=== PATIENT | female | born 1980 | race Caucasian/White ===

== ENCOUNTER 2017-02-02 09:15 | Outpatient (CLI) | payer OTHER | END 2017-02-02 09:16 | disposition home or self-care (01) | LOC: LAB.R 09:15 | PROVIDERS: ATTEND Family Medicine | DX: Z11.3 Encounter for screening for infections with a predominantly sexual mode of transmission (principal) | CPT/HCPCS: 87480; 87491; 87510; 87591; 87660 ==

== ENCOUNTER 2018-06-05 11:56 | Outpatient (CLI) | payer OTHER ==
--- NOTE | 2018-06-06 10:51 | Ultrasound Report ---
Reason: MASS IN HEAD/NECK (LEFT SIDE) Procedure Date: 06/05/2018 Accession Number: [id number] / [id number] Procedure: US - Head or Neck Soft Tissue CPT Code: FULL RESULT: EXAM: Neck ULTRASOUND EXAM DATE: 06/05/2018 12:33 PM. CLINICAL HISTORY: MASS IN HEAD/NECK (LEFT SIDE). COMPARISON: None. TECHNIQUE: Real time sonographic imaging of the neck at area of clinical concern was performed by the jack tamp operator. Multiple printing supplies sales representative static images were saved for review. FINDINGS: It is sonographic evaluation of the area of clinical concern along the posterior left neck was performed. Corresponding with that the lump is an oval circumscribed isoechoic 1.0 x 0.4 x 0.7 cm superficial appearing avascular mass. IMPRESSION: Palpable lump corresponds to an approximate 1 cm isoechoic mass. Imaging features suggest this may represent a lipoma. Recommend correlation with physical exam findings and consideration for follow-up if there is any concern for interval growth in size. RADIA
== END 2018-06-05 11:57 | disposition home or self-care (01) ==
LOC: DI 11:56
PROVIDERS: ATTEND Family Medicine
DX: R22.1 Localized swelling, mass and lump, neck (principal)
CPT/HCPCS: 76536

== ENCOUNTER 2019-05-20 08:00 | Outpatient (CLI) | payer OTHER ==
[2019-05-20 18:46] LABS: ABSOLUTE RETICS # AUTO 0.063 10^6/uL (0.020-0.110); BASOPHILS # (AUTO) 0.1 10^3/uL (0.0-0.1); BASOPHILS % (AUTO) 0.8 %; EOSINOPHILS # (AUTO) 0.4 10^3/uL (0.0-0.7); EOSINOPHILS % (AUTO) 5.8 %; HGB - HEMOGLOBIN 12.4 g/dL (12.0-16.0); LYMPHOCYTES # (AUTO) 1.9 10^3/uL (1.5-3.5); LYMPHOCYTES % (AUTO) 29.9 %; MEAN CORPUSCULAR HEMOGLOBIN 30.5 pg (27.0-31.0); MEAN CORPUSCULAR HGB CONC 33.1 g/dL (32.0-36.0); MEAN CORPUSCULAR VOLUME 92.4 fL (81.0-99.0); MEAN PLATELET VOLUME 13.1 fL (7.9-10.8); MONOCYTES # (AUTO) 0.4 10^3/uL (0.0-1.0); MONOCYTES % (AUTO) 6.8 %; NEUTROPHILS # (AUTO) 3.5 10^3/uL (1.5-6.6); NEUTROPHILS % (AUTO) 56.4 %; PLT - PLATELET COUNT 230 10^3/uL (130-450); RED BLOOD COUNT 4.06 10^6/uL (4.20-5.40); RED CELL DISTRIBUTION WIDTH 13.2 % (12.0-15.0); WHITE BLOOD COUNT 6.2 x10^3/uL (4.8-10.8)
[2019-05-20 19:56] LABS: ALBUMIN 3.8 g/dL (3.2-5.5); ALBUMIN/GLOBULIN RATIO 1.1 (1.0-2.2); BILIRUBIN,TOTAL 0.6 mg/dL (0.2-1.0); CALCIUM 9.4 mg/dL (8.5-10.3); CREATININE 0.7 mg/dL (0.4-1.0); TOTAL PROTEIN 7.4 g/dL (6.7-8.2)
[2019-05-20 20:05] LABS: FOLATE 10.41 ng/mL (5.90 - >24.8)
== END 2019-05-30 23:59 | disposition home or self-care (01) ==
LOC: LAB.WCP 08:00
PROVIDERS: ATTEND Family Medicine
DX: R53.83 Other fatigue (principal); E03.9 Hypothyroidism, unspecified; J45.909 Unspecified asthma, uncomplicated
CPT/HCPCS: 36415; 80053; 82607; 82728; 82746; 83540; 84443; 84466; 85025; 85044

== ENCOUNTER 2019-07-26 11:20 | Outpatient (CLI) | payer OTHER ==
[2019-07-26 18:44] LABS: ABSOLUTE RETICS # AUTO 0.053 10^6/uL (0.020-0.110); BASOPHILS # (AUTO) 0.1 10^3/uL (0.0-0.1); BASOPHILS % (AUTO) 1.2 %; EOSINOPHILS % (AUTO) 12.9 %; HGB - HEMOGLOBIN 12.1 g/dL (12.0-16.0); LYMPHOCYTES # (AUTO) 1.9 10^3/uL (1.5-3.5); LYMPHOCYTES % (AUTO) 25.4 %; MEAN CORPUSCULAR HEMOGLOBIN 30.6 pg (27.0-31.0); MEAN CORPUSCULAR HGB CONC 32.4 g/dL (32.0-36.0); MEAN CORPUSCULAR VOLUME 94.4 fL (81.0-99.0); MEAN PLATELET VOLUME 12.8 fL (7.9-10.8); MONOCYTES # (AUTO) 0.4 10^3/uL (0.0-1.0); MONOCYTES % (AUTO) 5.6 %; NEUTROPHILS % (AUTO) 54.6 %; PLT - PLATELET COUNT 185 10^3/uL (130-450); RED BLOOD COUNT 3.96 10^6/uL (4.20-5.40); RED CELL DISTRIBUTION WIDTH 13.8 % (12.0-15.0); WHITE BLOOD COUNT 7.4 x10^3/uL (4.8-10.8)
[2019-07-26 19:11] LABS: % IRON SATURATION 41 % (20-50); IRON 104 ug/dL (28-170); TOTAL IRON BINDING CAPACITY 253 ug/dL (250-450); TRANSFERRIN 181 mg/dL (192-382)
== END 2019-07-26 23:59 | disposition home or self-care (01) ==
LOC: LAB.WCP 11:20
PROVIDERS: ATTEND Family Medicine
DX: Z00.00 Encounter for general adult medical examination without abnormal findings (principal); R53.83 Other fatigue
CPT/HCPCS: 36415; 82728; 83540; 84466; 85025; 85045

== ENCOUNTER 2019-07-27 18:19 | Emergency (ER) | payer OTHER ==
[2019-07-27 18:52] LABS: BILIRUBIN,URINE NEGATIVE (NEGATIVE); GLUCOSE, URINE (UA) NEGATIVE (NEGATIVE); KETONES,URINE (UA) >=80 mg/dL (NEGATIVE); LEUKOCYTE ESTERASE, URINE NEGATIVE (NEGATIVE); NITRITE,URINE NEGATIVE (NEGATIVE); OCCULT BLOOD,URINE NEGATIVE (NEGATIVE); PH,URINE 6.5 PH (5.0-7.5); PROTEIN,URINE NEGATIVE (NEGATIVE); UROBILINOGEN,URINE 0.2 (NORMAL) E.U./dL (NORMAL)
[2019-07-27 18:53] LABS: CLARITY,URINE CLEAR (CLEAR)
[2019-07-27 18:54] LABS: HCG UR QUAL NEGATIVE
[2019-07-27 18:56] LABS: BASOPHILS % (AUTO) 0.7 %; EOSINOPHILS % (AUTO) 11.3 %; HGB - HEMOGLOBIN 12.5 g/dL (12.0-16.0); LYMPHOCYTES % (AUTO) 20.2 %; MEAN CORPUSCULAR HEMOGLOBIN 29.8 pg (27.0-31.0); MEAN CORPUSCULAR HGB CONC 32.7 g/dL (32.0-36.0); MEAN PLATELET VOLUME 12.1 fL (7.9-10.8); MONOCYTES % (AUTO) 5.4 %; PLT - PLATELET COUNT 198 10^3/uL (130-450); RED CELL DISTRIBUTION WIDTH 13.6 % (12.0-15.0); WHITE BLOOD COUNT 10.2 x10^3/uL (4.8-10.8)
[2019-07-27 19:00] LABS: ABNORMAL LYMPHS % (MANUAL) 0 %; BAND NEUTROPHILS % (MANUAL) 0 %
[2019-07-27 19:05] LABS: ALBUMIN 3.9 g/dL (3.2-5.5); ALBUMIN/GLOBULIN RATIO 1.1 (1.0-2.2); BILIRUBIN,TOTAL 0.4 mg/dL (0.2-1.0); CALCIUM 9.4 mg/dL (8.5-10.3); CREATININE 0.8 mg/dL (0.4-1.0); TOTAL PROTEIN 7.5 g/dL (6.7-8.2)
[2019-07-27 19:22] LABS: EOSINOPHILS # (MANUAL) 0.6 10^3/uL (0-0.7); LYMPHOCYTES # (MANUAL) 1.9 10^3/uL (1.5-3.5); LYMPHOCYTES % (MANUAL) 18 %; MONOCYTES # (MANUAL) 0.4 10^3/uL (0.0-1.0)
[2019-07-27 19:23] LABS: DIFFERENTIAL COMMENT MANUAL DIFFERENTIAL; PLATELET ESTIMATE, MANUAL NORMAL (130-450,000) (NORMAL); PLATELET MORPHOLOGY NORMAL APPEARANCE (NORMAL); RBC MORPHOLOGY (MULTIPLE) NORMAL APPEARANCE (NORMAL)
--- NOTE | 2019-07-27 20:40 | Ultrasound Report ---
Reason: RUQ abd pain Procedure Date: 07/27/2019 Accession Number: [id number] / [id number] Procedure: US - Abdomen Limited CPT Code: Final Report FULL RESULT: EXAM: ABDOMEN ULTRASOUND LIMITED, RUQ EXAM DATE: 07/27/2019 08:15 PM. CLINICAL HISTORY: RUQ abd pain. COMPARISON: None. TECHNIQUE: Real-time scanning was performed with static images obtained. FINDINGS: Liver: Normal in size and echotexture. 16.5 cm. There is an echogenic lesion in left lobe of liver, measuring 1.4 x 0.9 x 0.7 cm likely a benign hemangioma. Main portal vein flow: Hepatopetal. Gallbladder: Status post cholecystectomy. Biliary System: CBD measures 4 mm. No intrahepatic or extrahepatic ductal dilatation. Other: Right kidney measures 9.7 cm. No hydronephrosis. Pancreas not well seen. IMPRESSION: Status post cholecystectomy. A benign cavernous hemangioma in left lobe of liver measuring 1.4 x 0.9 x 0.7 cm. No other significant abnormality. RADIA
--- NOTE | 2019-07-27 20:46 | ED Physician Documentation ---
PD HPI ABD PAIN - Stated complaint Stated Complaint: AB PX - Chief complaint Chief Complaint: Abd Pain - History obtained from History obtained from: Patient - History of Present Illness Timing - onset: How many years ago (2) Timing - duration: Years (2) Timing - details: Gradual onset, Now resolved, Waxing and waning Quality: Aching, Sharp, Pain Location: LUQ Improved by: Other (somethimes antacid) Worsened by: Eating Associated symptoms: Nausea, Vomiting. No: Diarrhea, Constipation Similar symptoms before: No diagnosis Recently seen: Not recently seen - Additional information Additional information: 39-year-old female who complains of 2-year history of left upper quadrant abdominal pain she has had her gallbladder taken out and she has persistence of the symptoms where she will have some pain sometimes after eating and sometimes this lasts for a day or 2 and then eventually resolves. She feels that she has to make herself vomit sometimes to get rid of the pain. She states that every once while she will take some antacid and it seems to help a little bit. Review of Systems Constitutional: denies: Fever Eyes: denies: Decreased vision Ears: denies: Ear pain Nose: denies: Congestion Throat: denies: Sore throat Cardiac: denies: Chest pain / pressure, Palpitations Respiratory: denies: Dyspnea, Cough GI: reports: Abdominal Pain, Nausea, Vomiting. denies: Constipation, Diarrhea, Bloody / black stool : denies: Dysuria, Frequency PD PAST MEDICAL HISTORY - Past Medical History Cardiovascular: None Respiratory: Asthma Endocrine/Autoimmune: None Psych: None Musculoskeletal: Chronic back pain - Past Surgical History Past Surgical History: Yes General: Cholecystectomy HEENT: Rhinoplasty Derm: Other - Present Medications Home Medications: Ambulatory Orders Medication Instructions Recorded Confirmed Albuterol Sulfate [Proair Hfa] 1 puffs INH DAILY PRN 01/23/15 01/23/15 Desogestrel-Ethinyl Estradiol 1 tab PO DAILY 01/23/15 01/23/15 [Apri 28 Day Tablet] Omeprazole 20 mg PO DAILY PM #20 capsule. 07/27/19 Sucralfate [Carafate] 1 gm PO ACHS #60 tablet 07/27/19 - Allergies Allergies/Adverse Reactions: Allergies Allergy/AdvReac Type Severity Reaction Status Date / Time Sulfa (Sulfonamide Allergy Edema Verified 07/27/19 18:31 Antibiotics) - Social History Does the pt smoke?: No Smoking Status: Never smoker Does the pt drink ETOH?: Yes Does the pt have substance abuse?: No - Immunizations Immunizations are current?: Yes - POLST Patient has POLST: No PD ED PE NORMAL - Vitals Vital signs reviewed: Yes (hypertensive ) - General General: Alert and oriented X 3, No acute distress, Well developed/nourished - HEENT HEENT: Atraumatic, PERRL, EOMI - Neck Neck: Supple, no meningeal sign, No bony TTP - Cardiac Cardiac: RRR, No murmur - Respiratory Respiratory: No respiratory distress, Clear bilaterally - Abdomen Abdomen: Normal bowel sounds, Soft, Non tender, Non distended, No organomegaly - Back Back: No CVA TTP, No spinal TTP - Derm Derm: Normal color, Warm and dry, No rash - Extremities Extremities: No deformity, No edema, No calf tenderness / cord - Neuro Neuro: Alert and oriented X 3, freelance translator 2-12 intact, No motor deficit, No sensory deficit, Normal speech Eye Opening: Spontaneous Motor: Obeys Commands Verbal: Oriented GCS Score: 15 - Psych Psych: Normal mood, Normal affect Results - Vitals Vitals: Vital Signs - 24 hr 07/27/19 07/27/19 18:30 20:52 Temperature 36.6 C 36.6 C Heart Rate 79 67 Respiratory 18 16 Rate Blood Pressure 146/75 H 146/68 H O2 Saturation 99 100 Oxygen O2 Source Room air - Labs Labs: Laboratory Tests 07/27/19 07/27/19 07/27/19 18:37 18:47 18:47 WBC 10.2 RBC 4.20 Hgb 12.5 Hct 38.2 MCV 91.0 MCH 29.8 MCHC 32.7 RDW 13.6 Plt Count 198 MPV 12.1 H Neut # (Auto) Not Reportable Lymph # (Auto) Not Reportable Mcdowell # (Auto) Not Reportable Eos # (Auto) Not Reportable Baso # (Auto) Not Reportable Absolute Nucleated RBC Not Reportable Total Counted 100 Band Neuts % (Manual) 0 Reactive Lymphs % (Man) 1 Abnorm Lymph % (Manual) 0 Nucleated RBC % Not Reportable Neutrophils # (Manual) 7.2 H Lymphocytes # (Manual) 1.9 Monocytes # (Manual) 0.4 Eosinophils # (Manual) 0.6 Basophils # (Manual) 0.0 Differential Comment MANUAL DIFFERENTIAL Platelet Estimate NORMAL (130-450,000) Platelet Morphology NORMAL APPEARANCE RBC Morph Micro Appear NORMAL APPEARANCE Sodium 137 Potassium 3.4 L Chloride 102 Carbon Dioxide 25 Anion Gap 10.0 BUN 11 Creatinine 0.8 Estimated GFR (MDRD) 81 L Glucose 87 Calcium 9.4 Total Bilirubin 0.4 AST 37 ALT 44 Alkaline Phosphatase 84 Total Protein 7.5 Albumin 3.9 Globulin 3.6 Albumin/Globulin Ratio 1.1 Lipase 38 Urine Color YELLOW Urine Clarity CLEAR Urine pH 6.5 Ur Specific Esmond 1.020 Urine Protein NEGATIVE Urine Glucose (UA) NEGATIVE Urine Ketones >=80 H Urine Occult Blood NEGATIVE Urine Nitrite NEGATIVE Urine Bilirubin NEGATIVE Urine Urobilinogen 0.2 (NORMAL) Ur Leukocyte Esterase NEGATIVE Ur Microscopic Review NOT INDICATED Urine Culture Comments NOT INDICATED Urine HCG, Qual NEGATIVE - Rads (name of study) RUQ u/s Radiology: Prelim report reviewed, EMP read indepedently, See rad report (Impression: Status post cholecystectomy. A benign cavernous hemangioma in the left lobe of liver measuring 1.4 x 0.9 x 0.7 cm. No other significant abnormality.) PD MEDICAL DECISION MAKING - ED course Complexity details: considered differential, d/w patient ED course: 39-year-old female with a history of left upper quadrant abdominal pain periodically does not have pain currently and we are unable to interrogate the pain with the GI cocktail. Her symptoms are most consistent with acute gastritis/duodenitis The patient is administered Protonix 40 mg orally and Carafate [address] her on a course of Nexium and Carafate. Departure - Departure Disposition: 01 Home, Self Care Clinical Impression: Gastritis Qualifiers: Gastritis type: unspecified gastritis Chronicity: acute Gastritis bleeding: without bleeding Qualified Code(s): K29.00 - Acute gastritis without bleeding Condition: Stable Instructions: ED PUD Vs Gastritis Follow-Up: Katherine Ruff PA-C [Primary Care Provider] - Prescriptions: Omeprazole 20 mg PO DAILY PM #20 capsule. Sucralfate [Carafate] 1 gm PO ACHS #60 tablet Discharge Date/Time: 07/27/19 21:00
[2019-07-27] MEDS ORDERED: SUCRALFATE 1 GM/10 ML UDC PO STA (20:47)
[2019-07-27] MEDS ORDERED: PANTOPRAZOLE 40 MG TABLET PO STA (20:47)
[2019-07-27 20:53] VITALS: BP 146/68
== END 2019-07-27 21:00 | disposition home or self-care (01) ==
LOC: ED 18:19
DX: K29.00 Acute gastritis without bleeding (principal)
CPT/HCPCS: 36415; 76705; 80053; 81003; 81025; 83690; 85025; 99284; A9270; 81001; 87086

== ENCOUNTER 2019-08-02 01:32 | Emergency (ER) | payer OTHER ==
--- NOTE | 2019-08-02 02:07 | ED Physician Documentation ---
PD HPI URI - Stated complaint Stated Complaint: SOA/COUGH - Chief complaint Chief Complaint: Resp - History obtained from History obtained from: Patient - History of Present Illness Timing - onset: How many weeks ago (1) Timing duration: Weeks (1) Timing details: Gradual onset, Still present Associated symptoms: Fever, Nasal congestion, Dry cough, Dyspnea Contributing factors: COPD / asthma. No: Travel, Immunocompromised Improves by: MDI/nebulizer (using inhaler at times) Worsened by: Activity Similar symptoms before: Diagnosis (gets ashtma exac with URIs.) Recently seen: Not recently seen Review of Systems Constitutional: reports: Chills, Myalgias Nose: reports: Rhinorrhea / runny nose, Congestion Throat: denies: Oral lesions / sores, Sore throat Respiratory: reports: Dyspnea, Cough, Wheezing GI: denies: Nausea, Vomiting, Diarrhea Skin: denies: Rash, Lesions PD PAST MEDICAL HISTORY - Past Medical History Past Medical History: Yes Cardiovascular: None Respiratory: Asthma Endocrine/Autoimmune: None Psych: None Musculoskeletal: Chronic back pain - Past Surgical History Past Surgical History: Yes 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 07/27/19 Sucralfate [Carafate] 1 gm PO ACHS #60 tablet 07/27/19 Albuterol Sulf [Ventolin Hfa 1 - 2 puffs INH Q4HR PRN #1 inhaler 08/02/19 Inhaler] Benzonatate [Tessalon Perle] 100 - 200 mg PO TID PRN #30 capsule 08/02/19 dexAMETHasone [Decadron] 4 mg PO DAILY #5 tablet 08/02/19 guaiFENesin/CODEINE [Robitussin AC] 10 ml PO Q6H PRN #240 ml 08/02/19 - Allergies Allergies/Adverse Reactions: Allergies Allergy/AdvReac Type Severity Reaction Status Date / Time Sulfa (Sulfonamide Allergy Edema Verified 08/02/19 01:40 Antibiotics) - Social History Does the pt smoke?: No Smoking Status: Never smoker Does the pt drink ETOH?: No Does the pt have substance abuse?: No - Immunizations Immunizations are current?: Yes - POLST Patient has POLST: No PD ED PE NORMAL - Vitals Vital signs reviewed: Yes - General General: Alert and oriented X 3, No acute distress, Well developed/nourished - HEENT HEENT: Moist mucous membranes, Pharynx benign - Neck Neck: Supple, no meningeal sign, No adenopathy - Cardiac Cardiac: RRR, No murmur - Respiratory Respiratory: Clear bilaterally (some wheeze noted but no coarse sounds) - Abdomen Abdomen: Soft, Non tender - Derm Derm: Normal color, Warm and dry - Neuro Neuro: Alert and oriented X 3, No motor deficit, Normal speech Results - Vitals Vitals: Oxygen O2 Source Room air PD MEDICAL DECISION MAKING - ED course Complexity details: re-evaluated patient (does not sound like pneumonia.), considered differential, d/w patient Departure - Departure Disposition: 01 Home, Self Care Clinical Impression: Upper respiratory infection Qualifiers: URI type: unspecified URI Qualified Code(s): J06.9 - Acute upper respiratory infection, unspecified Dyspnea Qualifiers: Dyspnea type: shortness of breath Qualified Code(s): R06.02 - Shortness of breath Condition: Stable Record reviewed to determine appropriate education?: Yes Instructions: ED URI Viral W Wheezing Follow-Up: Katherine Ruff PA-C [Primary Care Provider] - Prescriptions: Albuterol Sulf [Ventolin Hfa Inhaler] 1 - 2 puffs INH Q4HR PRN #1 inhaler PRN Reason: Shortness Of Air/Wheezing Benzonatate [Tessalon Perle] 100 - 200 mg PO TID PRN #30 capsule PRN Reason: Cough dexAMETHasone [Decadron] 4 mg PO DAILY #5 tablet guaiFENesin/CODEINE [Robitussin AC] 10 ml PO Q6H PRN #240 ml PRN Reason: Cough Comments: Stay well-hydrated. Tylenol or ibuprofen if needed for fevers and pains. Use the benzonatate (Tessalon) every 6 hours if needed for cough suppression. Use your albuterol inhaler 2 puffs 4 times a day for the next 7 to 10 days. Extra times if needed for wheezing and persistent cough. Decadron steroid daily for 5 more days to decrease inflammation through the airway and improve breathing with less coughing. Add cough medicine as needed. Recheck if not improving well over the next several days and resolved over a few days to week. Discharge Date/Time: 08/02/19 03:24
[2019-08-02] MEDS ORDERED: ALBUTEROL NEB 2.5 MG/3 ML INH STA (02:21)
[2019-08-02] MEDS ORDERED: BENZONATATE 100 MG CAPSULE PO STA (02:21)
[2019-08-02] MEDS ORDERED: CHERRY SYRUP 10 ML UDC PO ONE (02:21)
[2019-08-02] MEDS ORDERED: DEXAMETHASONE 10 MG/ML VIAL PO STA (02:21)
[2019-08-02 03:22] VITALS: BP 144/73
== END 2019-08-02 03:24 | disposition home or self-care (01) ==
LOC: ED 01:32
DX: J06.9 Acute upper respiratory infection, unspecified (principal); J45.909 Unspecified asthma, uncomplicated
CPT/HCPCS: 94640; 94664; 99284; A9270

== ENCOUNTER 2020-06-20 20:50 | Outpatient (CLI) | payer BC | END 2020-06-20 20:51 | disposition home or self-care (01) | LOC: COV 20:50 | PROVIDERS: ATTEND Family Medicine | DX: R05 Cough (principal); R06.02 Shortness of breath; R53.83 Other fatigue; R09.81 Nasal congestion; Z20.828 Contact with and (suspected) exposure to other viral communicable diseases ==

== ENCOUNTER 2020-11-22 01:32 | Emergency (ER) | payer BC ==
--- NOTE | 2020-11-22 02:17 | ED Physician Documentation ---
PD HPI URI - Stated complaint Stated Complaint: CONGESTION/COUGH - Chief complaint Chief Complaint: Resp - History obtained from History obtained from: Patient - History of Present Illness Timing - onset: How many days ago (4) Timing duration: Days (4) Timing details: Gradual onset, Still present Associated symptoms: Chills, Nasal congestion, Dry cough, Dyspnea. No: Fever, Hemoptysis, NVD Contributing factors: COPD / asthma. No: Sick contact, Travel, Immunocompromised Similar symptoms before: Diagnosis (gets asthma exac when has URI type symptoms.) Recently seen: Not recently seen Review of Systems Constitutional: reports: Chills, Myalgias. denies: Fever Nose: reports: Rhinorrhea / runny nose, Congestion. denies: Sinus pressure / pain Cardiac: denies: Chest pain / pressure, Pedal edema, Calf pain Respiratory: reports: Dyspnea, Cough, Wheezing. 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 HEENT: Rhinoplasty Derm: Other - Present Medications Home Medications: Ambulatory Orders Medication Instructions Recorded Confirmed Albuterol Sulfate [Proair Hfa] 1 puffs INH DAILY PRN 01/23/15 01/23/15 Benzonatate [Tessalon Perle] 100 - 200 mg PO TID PRN #30 capsule 08/02/19 Beclomethasone 80 Mcg [Qvar 80] 1 puffs INH BID #1 inhaler 11/22/20 Benzonatate [Tessalon] 100 mg PO TID PRN #20 cap 11/22/20 Ferrous Sulfate 325 mg ORAL DAILY 11/22/20 11/22/20 Olopatadine HCl [Pataday] 2.5 ml OP DAILY 11/22/20 11/22/20 Sumatriptan Inj [Imitrex Inj] 6 mg SUBQ ONCE PRN 11/22/20 11/22/20 cefUROXime axetiL [Ceftin] 500 mg PO BID #20 tablet 11/22/20 desogestreL-ethinyl estradioL 1 each PO DAILY 11/22/20 11/22/20 [Enskyce 28 Tablet] dexAMETHasone [Decadron] 4 mg PO DAILY #5 tablet 11/22/20 - Allergies Allergies/Adverse Reactions: Allergies Allergy/AdvReac Type Severity Reaction Status Date / Time Sulfa (Sulfonamide Allergy Edema Verified 11/22/20 01:41 Antibiotics) - Social History Does the pt smoke?: No Smoking Status: Never smoker Does the pt drink ETOH?: No Does the pt have substance abuse?: No - Immunizations Immunizations are current?: Yes - POLST Patient has POLST: No PD ED PE NORMAL - Vitals Vital signs reviewed: Yes - General General: Alert and oriented X 3, No acute distress, Well developed/nourished - HEENT HEENT: Moist mucous membranes, Pharynx benign - Neck Neck: Supple, no meningeal sign, No adenopathy - Cardiac Cardiac: RRR (minimal tachycardia), No murmur - Respiratory Respiratory: No: Clear bilaterally (some exp wheezing noted diffusely. No coarse sounds. ) - Abdomen Abdomen: Soft, Non tender - Extremities Extremities: No edema, No calf tenderness / cord - Neuro Neuro: Alert and oriented X 3, No motor deficit, Normal speech Results - Vitals Vitals: Vital Signs - 24 hr 11/22/20 11/22/20 11/22/20 01:39 02:50 03:11 Temperature 37.3 C 37.0 C Heart Rate 104 H 77 76 Respiratory 18 18 16 Rate Blood Pressure 111/94 H 112/90 H O2 Saturation 99 100 Oxygen O2 Source Room air PD MEDICAL DECISION MAKING - ED course Complexity details: considered differential (DoUpper respiratory and cough type symptoms with exacerbation of asthma. Await test to ensure. No pneumonia sounds per se. Given her asthma, will treat with steroids and inhaler but also consider oral antibiotics in light of the underlying lung disease), d/w patient Departure - Departure Disposition: 01 Home, Self Care Clinical Impression: Bronchitis Exacerbation of asthma Qualifiers: Asthma severity: mild Asthma persistence: intermittent Qualified Code(s): J45.21 - Mild intermittent asthma with (acute) exacerbation Upper respiratory infection Qualifiers: URI type: unspecified URI Qualified Code(s): J06.9 - Acute upper respiratory infection, unspecified Condition: Stable Record reviewed to determine appropriate education?: Yes Instructions: ED Upper Resp Infec Abx Tx Follow-Up: Katherine Ruff PA-C [Primary Care Provider] - Prescriptions: cefUROXime axetiL [Ceftin] 500 mg PO BID #20 tablet dexAMETHasone [Decadron] 4 mg PO DAILY #5 tablet Beclomethasone 80 Mcg [Qvar 80] 1 puffs INH BID #1 inhaler Benzonatate [Tessalon] 100 mg PO TID PRN #20 cap PRN Reason: Cough Comments: Stay well-hydrated. Use your albuterol inhaler 2 to 3 puffs 4 times a day for the next several days to week. Decadron steroid daily for the next 5 days. Cefuroxime antibiotic twice daily for 5 days as well. Add benzonatate every 4-6 hours if needed for cough. Tylenol or ibuprofen if needed for fever or chills. Recheck if not improving well over the next several days and resolved by 5 days. You may still have a bit of a cough left at that time but should be well improved. Once done with the oral steroids, you can transition to the Qvar inhaler over the next month or so. Discharge Date/Time: 11/22/20 03:10
[2020-11-22] MEDS ORDERED: ALBUTEROL NEB 2.5 MG/3 ML INH STA (02:32)
[2020-11-22] MEDS ORDERED: CHERRY SYRUP 10 ML UDC PO ONE (02:32)
[2020-11-22] MEDS ORDERED: DEXAMETHASONE 10 MG/ML VIAL PO STA (02:32)
[2020-11-22] MEDS ORDERED: BENZONATATE 100 MG CAPSULE PO STA (02:32)
[2020-11-22 03:12] VITALS: BP 112/90
== END 2020-11-22 03:10 | disposition home or self-care (01) ==
LOC: ED 01:32
DX: J40 Bronchitis, not specified as acute or chronic (principal); J45.21 Mild intermittent asthma with (acute) exacerbation; J06.9 Acute upper respiratory infection, unspecified; Z20.822 Contact with and (suspected) exposure to COVID-19
CPT/HCPCS: 87635; 94640; 99284; A9270

== ENCOUNTER 2020-11-23 09:54 | Outpatient (CLI) | payer BC ==
--- NOTE | 2020-11-23 10:16 | XRAY Report ---
PROCEDURE: Chest 2 View X-Ray INDICATIONS: ASTHMA EXACERBATION TECHNIQUE: 2 view(s) of the chest. COMPARISON: 01/23/2015 FINDINGS: Surgical changes and devices: None. Lungs and pleura: No pleural effusions or pneumothorax. Lungs are clear. Mediastinum: Mediastinal contours are normal. Heart size is normal. Bones and chest wall: No suspicious bony abnormalities. Soft tissues appear unremarkable. IMPRESSION: No acute cardiopulmonary process demonstrated radiographically. Reviewed by: Matt Ko MD on 11/23/2020 10:14 AM PDT Approved by: Matt Ko MD on 11/23/2020 10:14 AM PDT Station ID: [id number]
== END 2020-11-23 09:55 | disposition home or self-care (01) ==
LOC: DI.N 09:54
PROVIDERS: ATTEND Family Medicine
DX: J45.901 Unspecified asthma with (acute) exacerbation (principal)

== ENCOUNTER 2021-01-24 08:00 | Outpatient (CLI) | payer BC | END 2021-01-24 23:59 | disposition home or self-care (01) | LOC: LAB.N 08:00 | PROVIDERS: ATTEND Family Medicine | DX: R05 Cough (principal); Z20.822 Contact with and (suspected) exposure to COVID-19 ==

== ENCOUNTER 2021-01-24 18:13 | Outpatient (CLI) | payer BC ==
--- NOTE | 2021-01-25 08:25 | XRAY Report ---
PROCEDURE: Chest 2 View X-Ray INDICATIONS: PRODUCTIVE COUGH TECHNIQUE: 2 view(s) of the chest. COMPARISON: None. FINDINGS: Surgical changes and devices: None. Lungs and pleura: No pleural effusions or pneumothorax. Small opacity in left midlung field is seen concerning for left upper lobe infiltrate. Right lung is clear. Mediastinum: Mediastinal contours are normal. Heart size is normal. Bones and chest wall: No suspicious bony abnormalities. Soft tissues appear unremarkable. IMPRESSION: Finding is suggestive of a small left upper lobe infiltrate. No pleural effusion or pneu mothorax. Reviewed by: Milton Matrin MD on 01/25/2021 8:24 AM PDT Approved by: Milton Martin MD on 01/25/2021 8:24 AM PDT Station ID: [id number]
== END 2021-01-24 23:59 | disposition home or self-care (01) ==
LOC: DI.N 18:13
PROVIDERS: ATTEND Family Medicine
DX: R91.8 Other nonspecific abnormal finding of lung field (principal); R05 Cough; Z20.822 Contact with and (suspected) exposure to COVID-19

== ENCOUNTER 2021-01-31 08:00 | Outpatient (CLI) | payer BC ==
[2021-01-31 17:41] LABS: BASOPHILS # (AUTO) 0.1 10^3/uL (0.0-0.1); BASOPHILS % (AUTO) 0.5 %; EOSINOPHILS # (AUTO) 0.2 10^3/uL (0.0-0.7); EOSINOPHILS % (AUTO) 1.6 %; HCT - HEMATOCRIT 42.4 % (37.0-47.0); HGB - HEMOGLOBIN 14.2 g/dL (12.0-16.0); LYMPHOCYTES # (AUTO) 2.8 10^3/uL (1.5-3.5); LYMPHOCYTES % (AUTO) 27.2 %; MEAN CORPUSCULAR HEMOGLOBIN 31.9 pg (27.0-31.0); MEAN CORPUSCULAR HGB CONC 33.5 g/dL (32.0-36.0); MEAN CORPUSCULAR VOLUME 95.3 fL (81.0-99.0); MEAN PLATELET VOLUME 12.4 fL (7.9-10.8); MONOCYTES # (AUTO) 0.5 10^3/uL (0.0-1.0); MONOCYTES % (AUTO) 5.2 %; NEUTROPHILS # (AUTO) 6.8 10^3/uL (1.5-6.6); NEUTROPHILS % (AUTO) 65.2 %; PLT - PLATELET COUNT 241 10^3/uL (130-450); RED BLOOD COUNT 4.45 10^6/uL (4.20-5.40); RED CELL DISTRIBUTION WIDTH 13.2 % (12.0-15.0); WHITE BLOOD COUNT 10.4 x10^3/uL (4.8-10.8)
[2021-01-31 18:15] LABS: % IRON SATURATION 23 % (20-50); ALBUMIN 4.2 g/dL (3.2-5.5); ALBUMIN/GLOBULIN RATIO 1.2 (1.0-2.2); ALKALINE PHOSPHATASE 44 IU/L (42-121); ALT ALANINE AMINOTRANSFERASE 37 IU/L (10-60); AST ASPARTATE AMINOTRANSFERASE 16 IU/L (10-42); BILIRUBIN,TOTAL 0.6 mg/dL (0.2-1.0); BUN - BLOOD UREA NITROGEN 13 mg/dL (6-20); CALCIUM 9.6 mg/dL (8.5-10.3); CARBON DIOXIDE - CO2 25 mmol/L (21-32); CHLORIDE 102 mmol/L (101-111); CHOL/HDL RATIO 2.6 (<4.4); CHOLESTEROL 212 mg/dL; CREATININE 0.9 mg/dL (0.4-1.0); GFR - MDRD 70 (>89); GLUCOSE 87 mg/dL (70-100); HDL CHOLESTEROL 83 mg/dL; IRON 72 ug/dL (28-170); LDL CHOLESTEROL,CALCULATED 105 mg/dL; LDL/HDL RATIO 1.3 (<4.4); POTASSIUM 3.9 mmol/L (3.5-5.0); SODIUM 140 mmol/L (135-145); TOTAL IRON BINDING CAPACITY 308 ug/dL (250-450); TOTAL PROTEIN 7.7 g/dL (6.7-8.2); TRANSFERRIN 220 mg/dL (192-382); TRIGLYCERIDES 122 mg/dL; VLDL CHOLESTEROL 24 mg/dL
[2021-01-31 18:23] LABS: THYROID STIMULATING HORMONE 1.32 uIU/mL (0.34-5.60)
[2021-01-31 18:29] LABS: FERRITIN 39.9 ng/mL (11.0-306.8)
== END 2021-01-31 23:59 | disposition home or self-care (01) ==
LOC: LAB.WCP 08:00
PROVIDERS: ATTEND Family Medicine
DX: G43.909 Migraine, unspecified, not intractable, without status migrainosus (principal); R53.83 Other fatigue; E03.9 Hypothyroidism, unspecified
CPT/HCPCS: 36415; 80053; 80061; 82728; 83540; 83721; 84443; 84466; 85025

== ENCOUNTER 2021-02-09 09:11 | Outpatient (CLI) | payer BC ==
--- NOTE | 2021-02-09 19:07 | XRAY Report ---
PROCEDURE: Chest 2 View X-Ray INDICATIONS: PNEUMONIA TECHNIQUE: 2 view(s) of the chest. COMPARISON: 01/24/2021, 11/23/2020 FINDINGS: Surgical changes and devices: Cholecystectomy clips are seen. Lungs and pleura: No pleural effusions or pneumothorax. Lungs are clear. Mediastinum: Mediastinal contours are normal. Heart size is normal. Bones and chest wall: No suspicious bony abnormalities. Soft tissues appear unremarkable. IMPRESSION: Clear lungs, with resolution of the previously seen left midlung infiltrate. Reviewed by: Haresh Brock MD on 02/09/2021 6:05 PM KATHIE Approved by: Haresh Brock MD on 02/09/2021 6:05 PM KATHIE Station ID: [id number]
== END 2021-02-09 09:12 | disposition home or self-care (01) ==
LOC: DI.N 09:11
PROVIDERS: ATTEND Physician Assistant Medical
DX: J18.9 Pneumonia, unspecified organism (principal)

== ENCOUNTER 2021-03-28 07:48 | Outpatient (CLI) | payer BC ==
--- NOTE | 2021-03-29 10:50 | Mammography Report ---
BILATERAL DIGITAL DIAGNOSTIC MAMMOGRAM 3D/2D: 03/28/2021 CLINICAL: Baseline exam. Palpable right breast lump. No prior exams were available for comparison. The tissue of both breasts is heterogeneously dense. T his may lower the sensitivity of mammography. No significant masses, calcifications, or other findings are seen in either breast. IMPRESSION: INCOMPLETE: NEEDS ADDITIONAL IMAGING EVALUATION There is no abnormality seen in the right breast to correspond with the palpable abnormality in the u pper outer quadrant, however, ultrasound is recommended. Ultrasound will be performed immediately following the current exam. This exam was interpreted at Station ID: [id number]. NOTE: For mammograms, a report in lay terms will be sent to the patient. Approximately 15% of breast malignancies will not be visualized mammographically. In the management of a palpable breast mass, a negative mammogram must not discourage biopsy of a clinically suspicious lesion. Electronically Signed By: George Stokes M.D. ddp/:03/28/2021 09:00:25 ACR BI-RADS Category 0: Incomplete 3340F PARENCHYMAL PATTERN: (D) - The breast(s) demonstrate(s) heterogeneously dense fibroglandular zoe cortes. BI-RADS CATEGORY: (0) - 0 Ultrasound [id number] Immediate follow-up LATERALITY: (B)
--- NOTE | 2021-03-29 10:50 | Ultrasound Report ---
LIMITED ULTRASOUND OF RIGHT BREAST: 03/28/2021 CLINICAL: Palpable right breast lump. Comparison is made to exam dated: 03/28/2021 mammogram - [facility]. Real-time ultrasound of the right breast 10 o'clock region was performed on the areas of interest. G ray scale images of the real-time examination were reviewed. No discrete cystic or solid mass lesion identified in the area of palpable abnormality. IMPRESSION: NEGATIVE There is no sonographic evidence of malignancy. There is no abnormality seen in the right breast to correspond with the palpable abnormality at 10 o' clock, however, clinical followup is recommended. A 1 year screening mammogram is recommended given patient's family history. This exam was interpreted at Station ID: [id number]. Electronically Signed By: George Stokes M.D. ddp/:03/28/2021 09:34:24 Ultrasound BI-RADS: 1 Negative BI-RADS CATEGORY: (1) - 1 RECOMMENDATION: (ANNUAL) - Recommend routine annual screening mammography. [id number] 1 year screening LATERALITY: (B)
== END 2021-03-28 07:49 | disposition home or self-care (01) ==
LOC: DI 07:48
PROVIDERS: ATTEND Physician Assistant Medical
DX: N64.4 Mastodynia (principal); R92.8 Other abnormal and inconclusive findings on diagnostic imaging of breast

== ENCOUNTER 2021-04-22 08:00 | Outpatient (CLI) | payer BC | END 2021-04-22 23:59 | disposition home or self-care (01) | LOC: LAB.N 08:00 | PROVIDERS: ATTEND Nurse Practitioner | DX: R06.00 Dyspnea, unspecified (principal); Z20.822 Contact with and (suspected) exposure to COVID-19 ==

== ENCOUNTER 2021-04-22 11:33 | Outpatient (CLI) | payer BC ==
--- NOTE | 2021-04-22 13:19 | XRAY Report ---
PROCEDURE: Chest 2 View X-Ray INDICATIONS: SHORTNESS OF BREATH TECHNIQUE: 2 view(s) of the chest. COMPARISON: 02/09/2021.. FINDINGS: Surgical changes and devices: Cholecystectomy clips. Lungs and pleura: No pleural effusions or pneumothorax. Lungs are clear. Mediastinum: Mediastinal contours are normal. Heart size is normal. Bones and chest wall: No suspicious bony abnormalities. Soft tissues appear unremarkable. IMPRESSION: No acute cardiopulmonary disease process. Reviewed by: Nayely Mcadams MD, PhD on 04/22/2021 1:17 PM PDT Approved by: Nayely Mcadams MD, PhD on 04/22/2021 1:17 PM PDT Station ID: [id number]
== END 2021-04-22 23:59 | disposition home or self-care (01) ==
LOC: DI.N 11:33
PROVIDERS: ATTEND Nurse Practitioner
DX: R06.00 Dyspnea, unspecified (principal); Z20.822 Contact with and (suspected) exposure to COVID-19

== ENCOUNTER 2021-05-04 07:49 | Outpatient (CLI) | payer BC ==
[2021-05-04] MEDS ORDERED: IOPAMIDOL-300 100 ML VIAL ONE (07:59)
[2021-05-04] MEDS ORDERED: IOPAMIDOL-300 50 ML VIAL IVP ONE (08:16)
--- NOTE | 2021-05-04 10:46 | CT Report ---
PROCEDURE: CHEST W INDICATIONS: DYSPNEA, SHORTNESS OF BREATH CONTRAST: IV CONTRAST: Isovue 300 ml: 100 PO CONTRAST: *NO PO CONTRAST TECHNIQUE: After the administration of intravenous contrast, images were acquired from the pulmonary apices to t he posterior costophrenic angles. Multiplanar MIP reformats were acquired. For radiation dose reduc tion, the following was used: automated exposure control, adjustment of mA and/or kV according to pa tient size. COMPARISON: Correlation is made with chest radiograph, 04/22/2021 FINDINGS: Image quality: Excellent. Lungs and pleura: No acute air space opacities. No pleural effusions or pneumothorax. Central and peripheral airways are patent and normal in caliber. Mediastinum: Heart size is normal. No pericardial effusion. No mediastinal or hilar adenopathy by size criteria. Thoracic aorta and central pulmonary arteries are normal in size. Esophagus is norberto l in caliber. There is a small hiatal hernia. Bones and chest wall: No suspicious bony lesions. No vertebral body compression fractures. Prematur e thoracic spine degenerative changes are seen. There is accentuated thoracic kyphosis. No axillar y or supraclavicular adenopathy by size criteria. The thyroid is normal in size and there are no inc idental findings.. Abdomen: Cholecystectomy clips are seen. Apparent Bariatric surgery can be seen. Visualized upper abdominal solid organs appear normal. Upper abdominal bowel loops are normal in caliber. IMPRESSION: Clear lungs. Incidental note is made of: Premature thoracic spine degenerative change Small hiatal hernia Cholecystectomy Apparent bariatric surgery Reviewed by: Haresh Brock MD on 05/04/2021 9:45 AM [facility] Approved by: Haresh Brock MD on 05/04/2021 9:45 AM [facility] Station ID: [id number]
== END 2021-05-04 07:50 | disposition home or self-care (01) ==
LOC: DI 07:49
PROVIDERS: ATTEND Physician Assistant Medical
DX: R06.02 Shortness of breath (principal); R06.00 Dyspnea, unspecified
CPT/HCPCS: 71260; Q9967

== ENCOUNTER 2021-05-12 09:15 | Outpatient (CLI) | payer BC ==
[2021-05-12] MEDS ORDERED: ALBUTEROL 1 PUFF INH STA (15:35)
== END 2021-05-12 09:16 | disposition home or self-care (01) ==
LOC: RT 09:15
PROVIDERS: ATTEND Physician Assistant Medical
DX: R06.00 Dyspnea, unspecified (principal); R06.02 Shortness of breath
CPT/HCPCS: 94060

== ENCOUNTER 2021-10-28 22:20 | Emergency (ER) | payer BC, OTHER ==
--- NOTE | 2021-10-28 22:49 | ED Physician Documentation ---
PD HPI URI - Stated complaint Stated Complaint: SOA - Chief complaint Chief Complaint: Resp - History obtained from History obtained from: Patient - History of Present Illness Timing - onset: How many weeks ago (1) Timing duration: Weeks (1) Timing details: Gradual onset, Still present (increasing cough and dyspnea, with productive cough now.) Associated symptoms: Chills, Nasal congestion, Productive cough, Dyspnea. No: Fever, NVD Contributing factors: No: Sick contact, Unimmunized Improves by: MDI/nebulizer (improves breathing but not consistently) Worsened by: Activity Similar symptoms before: Diagnosis (History of asthma and recurrent bronchiolitis with home inhaled steroids Qvar daily, and albuterol inhaler and nebulizer as needed.) Recently seen: Not recently seen Review of Systems Constitutional: reports: Chills. 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 HEENT: Rhinoplasty Derm: Other - Present Medications Home Medications: Ambulatory Orders Medication Instructions Recorded Confirmed Albuterol Sulfate [Proair Hfa] 1 puffs INH DAILY PRN 01/23/15 01/23/15 Benzonatate [Tessalon Perle] 100 - 200 mg PO TID PRN #30 capsule 08/02/19 Beclomethasone 80 Mcg [Qvar 80] 1 puffs INH BID #1 inhaler 11/22/20 Benzonatate [Tessalon] 100 mg PO TID PRN #20 cap 11/22/20 Ferrous Sulfate 325 mg ORAL DAILY 11/22/20 11/22/20 Olopatadine HCl [Pataday] 2.5 ml OP DAILY 11/22/20 11/22/20 Sumatriptan Inj [Imitrex Inj] 6 mg SUBQ ONCE PRN 11/22/20 11/22/20 cefUROXime axetiL [Ceftin] 500 mg PO BID #20 tablet 03/25/21 desogestreL-ethinyl estradioL 1 each PO DAILY 11/22/20 11/22/20 [Enskyce 28 Tablet] dexAMETHasone [Decadron] 4 mg PO DAILY #5 tablet 11/22/20 Benzonatate [Tessalon] 100 mg PO TID PRN #20 cap 10/29/21 cefUROXime axetiL [Ceftin] 250 mg PO Q12H #10 tablet 10/29/21 dexAMETHasone [Decadron] 4 mg PO DAILY #5 tablet 10/29/21 - Allergies Allergies/Adverse Reactions: Allergies Allergy/AdvReac Type Severity Reaction Status Date / Time Sulfa (Sulfonamide Allergy Edema Verified 10/28/21 22:23 Antibiotics) - Social History Does the pt smoke?: No Smoking Status: Never smoker Does the pt drink ETOH?: No Does the pt have substance abuse?: No - Immunizations Immunizations are current?: Yes - POLST Patient has POLST: No PD ED PE NORMAL - Vitals Vital signs reviewed: Yes - General General: Alert and oriented X 3, No acute distress, Well developed/nourished - HEENT HEENT: Ears normal, Pharynx benign - Neck Neck: Supple, no meningeal sign, No adenopathy - Cardiac Cardiac: RRR, No murmur - Respiratory Respiratory: No respiratory distress. No: Clear bilaterally (some scattered exp wheezes. no coarse sounds. ) - Abdomen Abdomen: Soft, Non tender - Derm Derm: Normal color, Warm and dry - Extremities Extremities: No tenderness to palpate, Normal ROM s pain, No edema, No calf tenderness / cord - Neuro Neuro: Alert and oriented X 3, No motor deficit, Normal speech Results - Vitals Vitals: Vital Signs - 24 hr 10/28/21 10/29/21 22:23 00:22 Temperature 36.5 C 37.1 C Heart Rate 92 78 Respiratory 16 16 Rate Blood Pressure 139/70 H 120/69 O2 Saturation 99 98 Oxygen O2 Source Room air - Rads (name of study) chest xray Radiology: Prelim report reviewed (no acute process.), See rad report PD MEDICAL DECISION MAKING - ED course Complexity details: reviewed results (chest xray clear), considered differential (History of reactive airway disease and has inhaler and nebulizer at home and is on inhaled steroids. Has cough and increased dyspnea the past couple of days. Unclear if allergies versus infectious. Given underlying RAD, abx and steroids would be appropriate. ), d/w patient Departure - Departure Disposition: 01 Home, Self Care Clinical Impression: Upper respiratory infection Qualifiers: URI type: unspecified URI Qualified Code(s): J06.9 - Acute upper respiratory infection, unspecified Dyspnea Qualifiers: Dyspnea type: shortness of breath Qualified Code(s): R06.02 - Shortness of breath Reactive airway disease with acute exacerbation Qualifiers: Asthma severity: mild Asthma persistence: intermittent Qualified Code(s): J45.21 - Mild intermittent asthma with (acute) exacerbation Condition: Stable Record reviewed to determine appropriate education?: Yes Instructions: ED URI Viral W Wheezing Follow-Up: Katherine Ruff PA-C [Primary Care Provider] - Prescriptions: cefUROXime axetiL [Ceftin] 250 mg PO Q12H #10 tablet dexAMETHasone [Decadron] 4 mg PO DAILY #5 tablet Benzonatate [Tessalon] 100 mg PO TID PRN #20 cap PRN Reason: Cough Comments: Your chest xray does not show any pneumonia. This could be viral or allergies, with some possiblity of bacterial. We can treat it with steroids, antibiotics, and Tessalon for cough. These were transmited to [facility] pharmacy. Continue your albuterol inhaler/neb at home 4 times daily for several days and extra as needed. Recheck if not improving over the next few days, return sooner if worse. Your COVID test should result in the next 1-2 days. Discharge Date/Time: 10/29/21 00:23
--- NOTE | 2021-10-28 22:58 | XRAY Report ---
PROCEDURE: Chest 1 View X-Ray INDICATIONS: dyspnea TECHNIQUE: One view of the chest was acquired. COMPARISON: 04/22/2021 FINDINGS: Surgical changes and devices: None. Lungs and pleura: No pleural effusions or pneumothorax. Lungs are clear. Mediastinum: Mediastinal contours appear normal. Heart size is normal. Bones and chest wall: No suspicious bony lesions. Overlying soft tissues appear unremarkable. IMPRESSION: No acute process. Reviewed by: Pilo Leija MD on 10/28/2021 10:57 PM [facility] Approved by: Pilo Leija MD on 10/28/2021 10:57 PM [facility] Station ID: [id number]
[2021-10-28] MEDS ORDERED: guaiFENesin 100 MG/5 ML UDC PO STA (23:02)
[2021-10-28] MEDS ORDERED: BENZONATATE 100 MG CAPSULE PO STA (23:02)
[2021-10-28] MEDS ORDERED: DEXAMETHASONE 10 MG/ML VIAL PO STA (23:02)
[2021-10-28] MEDS ORDERED: diphenhydrAMINE ELIXIR 25 MG/10 ML UDC PO STA (23:02)
[2021-10-29 00:23] VITALS: BP 120/69
== END 2021-10-29 00:23 | disposition home or self-care (01) ==
LOC: ED 22:20
DX: J06.9 Acute upper respiratory infection, unspecified (principal); J45.21 Mild intermittent asthma with (acute) exacerbation; Z20.822 Contact with and (suspected) exposure to COVID-19
CPT/HCPCS: 71045; 87635; 99284; A9270

== ENCOUNTER 2022-08-02 10:05 | Outpatient (CLI) | payer OTHER ==
--- NOTE | 2022-08-02 10:52 | XRAY Report ---
PROCEDURE: Shoulder 3 View LT INDICATIONS: SHOULDER PX TECHNIQUE: 3 views of the shoulder were acquired. COMPARISON: None. FINDINGS: Bones: No fractures or dislocations. No suspicious bony lesions. Visualized ribs appear intact. Th ere are mild degenerative changes seen, which are worst involving the acromioclavicular joint. Soft tissues: No suspicious soft tissue calcifications. The visualized lung demonstrates a normal a ppearance. IMPRESSION: Mild acromioclavicular joint degenerative change is seen. If it would be helpful for clinical management decision making, please consider a dedicated, schedule d shoulder MRI for further evaluation (assuming that there is no contraindication). Reviewed by: Haresh Brock MD on 08/02/2022 9:51 AM [facility] Approved by: Haresh Brock MD on 08/02/2022 9:51 AM [facility] Station ID: [id number]
== END 2022-08-02 10:06 | disposition home or self-care (01) ==
LOC: DI 10:05
PROVIDERS: ATTEND Chiropractor
DX: M19.012 Primary osteoarthritis, left shoulder (principal)

== ENCOUNTER 2022-08-21 17:00 | Outpatient (CLI) | payer OTHER | END 2022-08-21 23:59 | disposition home or self-care (01) | LOC: LAB.N 17:00 | PROVIDERS: ATTEND Registered Nurse | DX: B37.2 Candidiasis of skin and nail (principal) | CPT/HCPCS: 87101; 87220 ==

== ENCOUNTER 2022-11-08 07:37 | Outpatient (CLI) | payer OTHER ==
[2022-11-08 07:52] LABS: BASOPHILS # (AUTO) 0.1 10^3/uL (0.0-0.1); BASOPHILS % (AUTO) 1.2 %; EOSINOPHILS # (AUTO) 0.7 10^3/uL (0.0-0.7); HCT - HEMATOCRIT 40.3 % (37.0-47.0); HGB - HEMOGLOBIN 13.2 g/dL (12.0-16.0); LYMPHOCYTES # (AUTO) 2.4 10^3/uL (1.5-3.5); LYMPHOCYTES % (AUTO) 35.1 %; MEAN CORPUSCULAR HEMOGLOBIN 30.6 pg (27.0-31.0); MEAN CORPUSCULAR HGB CONC 32.8 g/dL (32.0-36.0); MEAN CORPUSCULAR VOLUME 93.3 fL (81.0-99.0); MEAN PLATELET VOLUME 11.5 fL (7.9-10.8); MONOCYTES # (AUTO) 0.5 10^3/uL (0.0-1.0); MONOCYTES % (AUTO) 7.4 %; NEUTROPHILS % (AUTO) 45.2 %; PLT - PLATELET COUNT 213 10^3/uL (130-450); RED BLOOD COUNT 4.32 10^6/uL (4.20-5.40); RED CELL DISTRIBUTION WIDTH 12.1 % (12.0-15.0); WHITE BLOOD COUNT 6.7 x10^3/uL (4.8-10.8)
[2022-11-08 08:09] LABS: ALBUMIN 3.6 g/dL (3.2-5.5); ALKALINE PHOSPHATASE 36 IU/L (42-121); ALT ALANINE AMINOTRANSFERASE 15 IU/L (10-60); AST ASPARTATE AMINOTRANSFERASE 18 IU/L (10-42); BILIRUBIN,TOTAL 0.6 mg/dL (0.2-1.0); BUN - BLOOD UREA NITROGEN 20 mg/dL (6-20); CALCIUM 9.5 mg/dL (8.5-10.3); CARBON DIOXIDE - CO2 26 mmol/L (21-32); CHLORIDE 106 mmol/L (101-111); CHOL/HDL RATIO 2.5 (<4.4); CHOLESTEROL 229 mg/dL; GFR - MDRD 61 (>89); GLUCOSE 94 mg/dL (70-100); HDL CHOLESTEROL 91 mg/dL; LDL CHOLESTEROL,CALCULATED 127 mg/dL; LDL/HDL RATIO 1.4 (<4.4); POTASSIUM 4.2 mmol/L (3.5-5.0); SODIUM 140 mmol/L (135-145); TOTAL PROTEIN 7.3 g/dL (6.7-8.2); TRIGLYCERIDES 56 mg/dL; VLDL CHOLESTEROL 11 mg/dL
[2022-11-08 08:21] LABS: THYROID STIMULATING HORMONE 4.03 uIU/mL (0.34-5.60)
== END 2022-11-08 07:38 | disposition home or self-care (01) ==
LOC: LAB 07:37
PROVIDERS: ATTEND Physician Assistant Medical
DX: Z00.00 Encounter for general adult medical examination without abnormal findings (principal); E03.9 Hypothyroidism, unspecified
CPT/HCPCS: 36415; 80053; 80061; 83721; 84443; 85025

== ENCOUNTER 2022-11-30 10:57 | Outpatient (CLI) | payer OTHER ==
[2022-11-30 12:14] LABS: THYROID STIMULATING HORMONE 2.83 uIU/mL (0.34-5.60)
== END 2022-11-30 10:58 | disposition home or self-care (01) ==
LOC: LAB 10:57
PROVIDERS: ATTEND Physician Assistant Medical
DX: R53.83 Other fatigue (principal)
CPT/HCPCS: 36415; 82306; 82607; 84443

== ENCOUNTER 2022-12-08 14:18 | Outpatient (CLI) | payer OTHER ==
--- NOTE | 2022-12-09 09:04 | Mammography Report ---
BILATERAL DIGITAL SCREENING MAMMOGRAM 3D/2D: 12/08/2022 CLINICAL: Routine screening. Comparison is made to exams dated: 03/28/2021 ultrasound and 03/28/2021 mammogram - [facility]. Both breasts are heterogeneously dense, which may obscure small masses (category c / 51-75% glandular tissue). No significant masses, calcifications, or other findings are seen in either breast. There has been no significant interval change. IMPRESSION: NEGATIVE There is no mammographic evidence of malignancy. A 1 year screening mammogram is recommended. Based on the Tyrer Cuzick model (a risk assessment model) the patients lifetime risk is 16.5% and he r 10 year risk is 2.2%. According to the ACR, ACS, and NCCN guidelines, an annual breast MRI exam deniz ng with mammogram is recommended if the patients lifetime risk is 20% or greater. This exam was interpreted at Station ID: [id number]. NOTE: For mammograms, a report in lay terms will be sent to the patient. Approximately 15% of breast malignancies will not be visualized mammographically. In the management of a palpable breast mass, a negative mammogram must not discourage biopsy of a clinically suspicious lesion. Electronically Signed By: Madhav rogel/macho:12/09/2022 07:14:13 letter sent: No_Letter ACR BI-RADS Category 1: Negative 3341F PARENCHYMAL PATTERN: (D) - The breast(s) demonstrate(s) heterogeneously dense fibroglandular zoe cortes. BI-RADS CATEGORY: (1) - 1 Mammogram [id number] 1 year screening LATERALITY: (B)
== END 2022-12-08 14:19 | disposition home or self-care (01) ==
LOC: DI.N 14:18
DX: Z12.31 Encounter for screening mammogram for malignant neoplasm of breast (principal)

== ENCOUNTER 2023-01-03 07:09 | Outpatient (CLI) | payer OTHER | END 2023-01-03 07:10 | disposition home or self-care (01) | LOC: LAB 07:09 | PROVIDERS: ATTEND Physician Assistant Medical | DX: Z98.84 Bariatric surgery status (principal) | CPT/HCPCS: 36415; 82607; 82728; 82746; 83735; 83970; 84425; 84590 ==

== ENCOUNTER 2023-02-05 11:07 | Emergency (ER) | payer OTHER ==
[2023-02-05 11:39] LABS: BASOPHILS # (AUTO) 0.1 10^3/uL (0.0-0.1); BASOPHILS % (AUTO) 0.7 %; EOSINOPHILS # (AUTO) 0.3 10^3/uL (0.0-0.7); HCT - HEMATOCRIT 41.7 % (37.0-47.0); HGB - HEMOGLOBIN 14.2 g/dL (12.0-16.0); LYMPHOCYTES # (AUTO) 2.2 10^3/uL (1.5-3.5); LYMPHOCYTES % (AUTO) 32.7 %; MEAN CORPUSCULAR HEMOGLOBIN 31.2 pg (27.0-31.0); MEAN CORPUSCULAR HGB CONC 34.1 g/dL (32.0-36.0); MEAN CORPUSCULAR VOLUME 91.6 fL (81.0-99.0); MEAN PLATELET VOLUME 11.4 fL (7.9-10.8); MONOCYTES # (AUTO) 0.5 10^3/uL (0.0-1.0); MONOCYTES % (AUTO) 7.3 %; NEUTROPHILS # (AUTO) 3.7 10^3/uL (1.5-6.6); PLT - PLATELET COUNT 230 10^3/uL (130-450); RED BLOOD COUNT 4.55 10^6/uL (4.20-5.40); WHITE BLOOD COUNT 6.7 x10^3/uL (4.8-10.8)
--- NOTE | 2023-02-05 11:44 | XRAY Report ---
PROCEDURE: Chest 1 View X-Ray INDICATIONS: Chest pain TECHNIQUE: One view of the chest was acquired. COMPARISON: None. FINDINGS: Surgical changes and devices: None. Lungs and pleura: No pleural effusions or pneumothorax. Lungs are clear. Mediastinum: Mediastinal contours appear normal. Heart size is normal. Bones and chest wall: No suspicious bony lesions. Overlying soft tissues appear unremarkable. IMPRESSION: No acute cardiopulmonary process. Reviewed by: Daniel Nation on 02/05/2023 11:42 AM PDT Approved by: Daniel Nation on 02/05/2023 11:42 AM PDT Station ID: [id number]
[2023-02-05 11:52] LABS: ALBUMIN 4.1 g/dL (3.2-5.5); ALBUMIN/GLOBULIN RATIO 1.1 (1.0-2.2); BILIRUBIN,TOTAL 0.6 mg/dL (0.2-1.0); CALCIUM 9.3 mg/dL (8.5-10.3); POTASSIUM 3.9 mmol/L (3.5-5.0); TOTAL PROTEIN 7.9 g/dL (6.7-8.2)
--- NOTE | 2023-02-05 12:29 | ED Physician Documentation ---
PD HPI CHEST PAIN - Stated complaint Stated Complaint: CHEST PX/JAW TIGHTNESS - Chief complaint Chief Complaint: Cardiac - History obtained from History obtained from: Patient - Additional information Additional information: 42-year-old woman with no history of heart issues nor family history of heart issues. She does have remote history of gastric sleeve, , cholecystectomy. 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 It was severe for about 5 minutes during which she felt dizzy but not short of breath nor nauseous nor sweaty. Now pretty much gone. Denies pedal edema or calf pain. No recent travel. No cough. No hemoptysis. 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 HEENT: Rhinoplasty Derm: Other - Present Medications Home Medications: Ambulatory Orders Medication Instructions Recorded Confirmed Albuterol Sulfate [Proair Hfa] 1 puffs INH DAILY PRN 01/23/15 01/23/15 Benzonatate [Tessalon Perle] 100 - 200 mg PO TID PRN #30 capsule 08/02/19 Beclomethasone 80 Mcg [Qvar 80] 1 puffs INH BID #1 inhaler 11/22/20 Benzonatate [Tessalon] 100 mg PO TID PRN #20 cap 11/22/20 Ferrous Sulfate 325 mg ORAL DAILY 11/22/20 11/22/20 Olopatadine HCl [Pataday] 2.5 ml OP DAILY 11/22/20 11/22/20 Sumatriptan Inj [Imitrex Inj] 6 mg SUBQ ONCE PRN 11/22/20 11/22/20 cefUROXime axetiL [Ceftin] 500 mg PO BID #20 tablet 11/22/20 desogestreL-ethinyl estradioL 1 each PO DAILY 11/22/20 11/22/20 [Enskyce 28 Tablet] dexAMETHasone [Decadron] 4 mg PO DAILY #5 tablet 11/22/20 Benzonatate [Tessalon] 100 mg PO TID PRN #20 cap 10/29/21 cefUROXime axetiL [Ceftin] 250 mg PO Q12H #10 tablet 10/29/21 dexAMETHasone [Decadron] 4 mg PO DAILY #5 tablet 10/29/21 Nitroglycerin [Nitrostat] 0.4 mg SL Q5MIN PRN #1 tab 02/05/23 Simvastatin [Zocor] 20 mg PO DAILY #30 tablet 02/05/23 - Allergies Allergies/Adverse Reactions: Allergies Allergy/AdvReac Type Severity Reaction Status Date / Time Sulfa (Sulfonamide Allergy Edema Verified 02/05/23 11:13 Antibiotics) - Social History Does the pt smoke?: No Smoking Status: Never smoker Does the pt drink ETOH?: No Does the pt have substance abuse?: No - Immunizations Immunizations are current?: Yes - POLST Patient has POLST: No PD ED PE NORMAL - Vitals Vital signs reviewed: Yes - General General: Alert and oriented X 3, No acute distress - HEENT HEENT: PERRL, EOMI - Neck Neck: Supple, no meningeal sign, No bony TTP - Cardiac Cardiac: RRR, No murmur - Respiratory Respiratory: No respiratory distress, Clear bilaterally - Abdomen Abdomen: Non tender - Extremities Extremities: No edema, No calf tenderness / cord - Neuro Neuro: Alert and oriented X 3, Normal speech Results - Vitals Vitals: Vital Signs - 24 hr 02/05/23 02/05/23 02/05/23 11:11 12:41 13:05 Temperature 36.2 C L Heart Rate 85 69 75 Respiratory 20 18 16 Rate Blood Pressure 161/90 H 127/85 H O2 Saturation 100 99 100 02/05/23 02/05/23 02/05/23 13:37 14:00 14:39 Temperature Heart Rate 64 65 65 Respiratory 16 14 16 Rate Blood Pressure 129/77 129/77 127/70 O2 Saturation 100 98 100 02/05/23 15:17 Temperature Heart Rate 66 Respiratory 15 Rate Blood Pressure 118/60 O2 Saturation 97 Oxygen O2 Source Room air - EKG (time done) 1117 EKG releavant findings:: EKG personally interpreted by author of this note. Relevant findings are: Rate: Rate (enter#) (74) Rhythm: NSR, LAE Pax: Normal Intervals: Normal TN QRS: LVH Ischemia: Normal ST segments Computer interpretation: Agree with computer - Labs Labs: Laboratory Tests 02/05/23 02/05/23 02/05/23 11:36 11:36 11:36 WBC 6.7 RBC 4.55 Hgb 14.2 Hct 41.7 MCV 91.6 MCH 31.2 H MCHC 34.1 RDW 12.0 Plt Count 230 MPV 11.4 H Neut # (Auto) 3.7 Lymph # (Auto) 2.2 [place] # (Auto) 0.5 Eos # (Auto) 0.3 Baso # (Auto) 0.1 Absolute Nucleated RBC 0.00 Nucleated RBC % 0.0 Sodium 136 Potassium 3.9 Chloride 101 Carbon Dioxide 26 Anion Gap 9.0 BUN 13 Creatinine 1.0 Estimated GFR (MDRD) 61 L Glucose 88 Calcium 9.3 Total Bilirubin 0.6 AST 20 ALT 22 Alkaline Phosphatase 42 Troponin I High Sens 14.6 Total Protein 7.9 Albumin 4.1 Globulin 3.8 Albumin/Globulin Ratio 1.1 Lipase 42 02/05/23 02/05/23 13:26 15:11 WBC RBC Hgb Hct MCV MCH MCHC RDW Plt Count MPV Neut # (Auto) Lymph # (Auto) [place] # (Auto) Eos # (Auto) Baso # (Auto) Absolute Nucleated RBC Nucleated RBC % Sodium Potassium Chloride Carbon Dioxide Anion Gap BUN Creatinine Estimated GFR (MDRD) Glucose Calcium Total Bilirubin AST ALT Alkaline Phosphatase Troponin I High Sens 14.9 H* 15.1 H* Total Protein Albumin Globulin Albumin/Globulin Ratio Lipase - Rads (name of study) Single view chest x-ray is unremarkable Relevant Findings:: Final report received, EMP independent interpretation of test PD Medical Decision Making - ED course ED course: 42-year-old woman with resolved history that could be consistent with angina with nonischemic EKG but she does have LVH. This was discussed with her. Initial biomarkers are negative. Given the short time course plan to repeat in 2 hours. Heart score 1 for indeterminate history. Second troponin basically flat from 14.6, now 14.9, but technically now positive. At that point I paged [place] [facility] and subsequently spoke with Dr. Daniel Sethi and he felt the patient was safe for outpatient follow-up with aspirin, statin and he would get her an urgent follow-up appointment in [place]. Departure - Departure Disposition: 01 Home, Self Care Clinical Impression: Chest pain Qualifiers: Chest pain type: unspecified Qualified Code(s): R07.9 - Chest pain, unspecified Condition: Good Record reviewed to determine appropriate education?: Yes Instructions: ED Chest Pain Atypical Unkn Cause Prescriptions: Nitroglycerin [Nitrostat] 0.4 mg SL Q5MIN PRN #1 tab PRN Reason: Chest Pain Simvastatin [Zocor] 20 mg PO DAILY #30 tablet Comments: Today I discussed your case with Dr. Daniel Sethi, preventive maintenance engineer associated with [facility] in [place]. He will arrange for you to have an urgent follow-up appointment with one of their preventive maintenance engineer that does clinic in [place]. They should be calling you, but if you do not hear from them by tomorrow afternoon, call their office at [phone]. You should take a baby aspirin a day. If you develop recurrent chest pain take a nitroglycerin and call [phone]. Dr. Vergara also wanted me to put you on a cholesterol medication which is prescribed. Discharge Date/Time: 02/05/23 16:05
[2023-02-05] MEDS ORDERED: ASPIRIN CHEW 81 MG TABLET PO STA (14:15)
[2023-02-05 15:22] VITALS: BP 118/60
== END 2023-02-05 16:05 | disposition home or self-care (01) ==
LOC: ED 11:07
DX: R07.9 Chest pain, unspecified (principal); Z98.84 Bariatric surgery status
CPT/HCPCS: 36415; 71045; 80053; 83690; 84484; 85025; 93005; 99284; A9270

== ENCOUNTER 2023-02-10 17:47 | Emergency (ER) | payer OTHER ==
[2023-02-10 18:00] LABS: BASOPHILS # (AUTO) 0.1 10^3/uL (0.0-0.1); BASOPHILS % (AUTO) 0.9 %; EOSINOPHILS # (AUTO) 0.5 10^3/uL (0.0-0.7); EOSINOPHILS % (AUTO) 6.5 %; HCT - HEMATOCRIT 40.6 % (37.0-47.0); HGB - HEMOGLOBIN 13.7 g/dL (12.0-16.0); LYMPHOCYTES # (AUTO) 3.1 10^3/uL (1.5-3.5); LYMPHOCYTES % (AUTO) 45.2 %; MEAN CORPUSCULAR HEMOGLOBIN 30.9 pg (27.0-31.0); MEAN CORPUSCULAR HGB CONC 33.7 g/dL (32.0-36.0); MEAN CORPUSCULAR VOLUME 91.4 fL (81.0-99.0); MEAN PLATELET VOLUME 12.1 fL (7.9-10.8); MONOCYTES # (AUTO) 0.5 10^3/uL (0.0-1.0); MONOCYTES % (AUTO) 6.6 %; NEUTROPHILS # (AUTO) 2.8 10^3/uL (1.5-6.6); NEUTROPHILS % (AUTO) 40.7 %; PLT - PLATELET COUNT 215 10^3/uL (130-450); RED BLOOD COUNT 4.44 10^6/uL (4.20-5.40); RED CELL DISTRIBUTION WIDTH 12.1 % (12.0-15.0)
--- NOTE | 2023-02-10 18:01 | ED Physician Documentation ---
History of Present Illness - Stated complaint Stated Complaint: CHEST PX - Chief complaint Chief Complaint: Cardiac - Additonal information Additional information: 42-year-old female presents to the emergency department for evaluation of sub sternal chest pain/pressure that began on about 515. She was in the car driving with her daughter and she got upset with her because she was not listening. She developed this chest pain and pressure that radiated to the right arm. There was no nausea or vomiting. Pain lasted about 15 minutes and improved when she was able to calm down. Patient was seen in this emergency department on 05 February for chest pain with a history that suggested angina. Her EKG was nonischemic. However while in the emergency department her first troponin was 14.6 and on repeat was 14.9, technically positive. With this finding the ER provider followed up with [facility] and was able to speak with Dr. Daniel Sethi. They felt the patient was safe for discharge home with aspirin and a statin which the patient has filled and began taking. They were going to schedule urgent follow-up. The patient is scheduled to see the cardiology team this upcoming Thursday. Patient is free of chest pain at this time. She did not take her nitroglycerin. Patient does not have any previous history of hypertension or heart disease and no strong family history of heart disease. Review of Systems Cardiac: reports: Reviewed and negative. 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 HEENT: Rhinoplasty Derm: Other - Present Medications Home Medications: Ambulatory Orders Medication Instructions Recorded Confirmed Albuterol Sulfate [Proair Hfa] 1 puffs INH DAILY PRN 01/23/15 01/23/15 Benzonatate [Tessalon Perle] 100 - 200 mg PO TID PRN #30 capsule 08/02/19 Beclomethasone 80 Mcg [Qvar 80] 1 puffs INH BID #1 inhaler 11/22/20 Benzonatate [Tessalon] 100 mg PO TID PRN #20 cap 11/22/20 Ferrous Sulfate 325 mg ORAL DAILY 11/22/20 11/22/20 Olopatadine HCl [Pataday] 2.5 ml OP DAILY 11/22/20 11/22/20 Sumatriptan Inj [Imitrex Inj] 6 mg SUBQ ONCE PRN 11/22/20 11/22/20 cefUROXime axetiL [Ceftin] 500 mg PO BID #20 tablet 11/22/20 desogestreL-ethinyl estradioL 1 each PO DAILY 11/22/20 11/22/20 [Enskyce 28 Tablet] dexAMETHasone [Decadron] 4 mg PO DAILY #5 tablet 11/22/20 Benzonatate [Tessalon] 100 mg PO TID PRN #20 cap 10/29/21 cefUROXime axetiL [Ceftin] 250 mg PO Q12H #10 tablet 10/29/21 dexAMETHasone [Decadron] 4 mg PO DAILY #5 tablet 10/29/21 Nitroglycerin [Nitrostat] 0.4 mg SL Q5MIN PRN #1 tab 02/05/23 Simvastatin [Zocor] 20 mg PO DAILY #30 tablet 02/05/23 - Allergies Allergies/Adverse Reactions: Allergies Allergy/AdvReac Type Severity Reaction Status Date / Time Sulfa (Sulfonamide Allergy Edema Verified 02/05/23 11:13 Antibiotics) - Social History Does the pt smoke?: No Smoking Status: Never smoker Does the pt drink ETOH?: No Does the pt have substance abuse?: No - Immunizations Immunizations are current?: Yes - POLST Patient has POLST: No PD ED PE NORMAL - General General: Alert and oriented X 3, No acute distress - Cardiac Cardiac: RRR, No murmur, No gallop - Respiratory Respiratory: No respiratory distress, Clear bilaterally - Abdomen Abdomen: Normal bowel sounds, Soft, Non tender - Derm Derm: Normal color, Warm and dry, No rash - Extremities Extremities: No deformity - Neuro Neuro: Alert and oriented X 3, 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 Relevant findings are: Rate: Rate (enter#) (77) Rhythm: NSR [place]: Normal Intervals: Normal [place] QRS: Normal, LVH Ischemia: T wave inversion (new V3), Non specific changes Compare to prior EKG: Changed from prior EKG (Now with new T wave inversions V3) - Labs Labs: Laboratory Tests 02/10/23 02/10/23 02/10/23 17:55 17:55 17:55 WBC 7.0 RBC 4.44 Hgb 13.7 Hct 40.6 MCV 91.4 MCH 30.9 MCHC 33.7 RDW 12.1 Plt Count 215 MPV 12.1 H Neut # (Auto) 2.8 Lymph # (Auto) 3.1 [place] # (Auto) 0.5 Eos # (Auto) 0.5 Baso # (Auto) 0.1 Absolute Nucleated RBC 0.00 Nucleated RBC % 0.0 Sodium 137 Potassium 3.5 Chloride 104 Carbon Dioxide 24 Anion Gap 9.0 BUN 11 Creatinine 0.9 Estimated GFR (MDRD) 69 L Glucose 103 H Calcium 9.0 Total Bilirubin 0.4 AST 19 ALT 18 Alkaline Phosphatase 38 L Troponin I High Sens 13.7 Total Protein 7.5 Albumin 3.8 Globulin 3.7 Albumin/Globulin Ratio 1.0 Lipase 45 02/10/23 20:08 WBC RBC Hgb Hct MCV MCH MCHC RDW Plt Count MPV Neut # (Auto) Lymph # (Auto) [place] # (Auto) Eos # (Auto) Baso # (Auto) Absolute Nucleated RBC Nucleated RBC % Sodium Potassium Chloride Carbon Dioxide Anion Gap BUN Creatinine Estimated GFR (MDRD) Glucose Calcium Total Bilirubin AST ALT Alkaline Phosphatase Troponin I High Sens 12.2 Total Protein Albumin Globulin Albumin/Globulin Ratio Lipase - Rads (name of study) cxr Relevant Findings:: Final report received (No acute cardiopulmonary process) PD Medical Decision Making - ED course Complexity details: reviewed results, re-evaluated patient, considered differential, d/w patient ED course: 42-year-old female is brought to the emergency department for evaluation of substernal chest pain with radiation to the right arm. He was driving in the car with her daughter and then got upset with each other. This is when the chest pain developed. It lasted about 15 minutes and improved after she calmed down. I patient was seen in this emergency department for a similar event last week. At that time she had initial troponin of just over 14 but on repeat was 14.9, technically positive. My colleague at that time reached out to [facility] supervisor delivery department group and the patient does have an upcoming appointment this Thursday in 6 days time. She was started on aspirin, a statin and as well as being given nitroglycerin. Today in the emergency department on presentation she is now pain-free. Her EKG is interpreted by myself is nonischemic. I did obtain CBC, electrolytes as well as high-sensitivity troponin. The first troponin was 13.7. This was a little more than 1 hour after the event. A repeat troponin was obtained about 3 hours after the pain event and had declined to 12.2 so it remained negative. A chest x-ray was without findings to suggest pneumonia, pneumothorax, pleural effusion. History is suggestive of angina but given the prompt follow-up already scheduled with cardiology believe she is stable for discharge home with a heart score of 1 Departure - Departure Disposition: 01 Home, Self Care Clinical Impression: Chest pain Qualifiers: Chest pain type: unspecified Qualified Code(s): R07.9 - Chest pain, unspecified Condition: Stable Record reviewed to determine appropriate education?: Yes Comments: You are seen today in the emergency department because you developed about 15 minutes of substernal chest pain and pressure that radiated to your right arm. You were seen last week for something similar. Today in the emergency department your EKG did not show signs of a heart attack. 2 high-sensitivity troponins were both negative. It is very important that you continue to follow-up with the supervisor delivery department you are scheduled to see on Thursday at [facility]. Continue to take your daily aspirin as well as the statin. If you have another episode of chest pain please take the nitroglycerin. If the chest pain does not resolve at that time then come back immediately to the ER.
--- NOTE | 2023-02-10 18:20 | XRAY Report ---
PROCEDURE: Chest 1 View X-Ray INDICATIONS: Chest Pain TECHNIQUE: One view of the chest was acquired. COMPARISON: 02/05/2023 and 10/28/2021 FINDINGS: Surgical changes and devices: None. Lungs and pleura: No pleural effusions or pneumothorax. Lungs are clear. Mediastinum: Mediastinal contours appear normal. Heart size is normal. Bones and chest wall: No suspicious bony lesions. Overlying soft tissues appear unremarkable. IMPRESSION: No acute cardiopulmonary process. Reviewed by: Milton Martin MD on 02/10/2023 6:19 PM PDT Approved by: Milton Martin MD on 02/10/2023 6:19 PM PDT Station ID: [id number]
[2023-02-10 18:24] LABS: ALBUMIN 3.8 g/dL (3.2-5.5); BILIRUBIN,TOTAL 0.4 mg/dL (0.2-1.0); CREATININE 0.9 mg/dL (0.4-1.0); POTASSIUM 3.5 mmol/L (3.5-5.0); TOTAL PROTEIN 7.5 g/dL (6.7-8.2)
[2023-02-10 21:30] VITALS: BP 120/64
== END 2023-02-10 21:28 | disposition home or self-care (01) ==
LOC: ED 17:47
DX: R07.9 Chest pain, unspecified (principal)
CPT/HCPCS: 36415; 80053; 83690; 84484; 85025; 93005; 99283; 99284

== ENCOUNTER 2023-03-06 11:20 | Outpatient (CLI) | payer OTHER | END 2023-03-06 11:21 | disposition home or self-care (01) | LOC: NS 11:20 | PROVIDERS: ATTEND Physician Assistant | DX: Z71.3 Dietary counseling and surveillance (principal); E66.9 Obesity, unspecified; Z68.39 Body mass index [BMI] 39.0-39.9, adult | CPT/HCPCS: 97802 ==

== ENCOUNTER 2023-03-10 07:37 | Emergency (ER) | payer OTHER ==
[2023-03-10 08:04] LABS: BASOPHILS # (AUTO) 0.1 10^3/uL (0.0-0.1); BASOPHILS % (AUTO) 0.9 %; EOSINOPHILS # (AUTO) 0.5 10^3/uL (0.0-0.7); HCT - HEMATOCRIT 38.6 % (37.0-47.0); HGB - HEMOGLOBIN 12.7 g/dL (12.0-16.0); LYMPHOCYTES # (AUTO) 1.9 10^3/uL (1.5-3.5); LYMPHOCYTES % (AUTO) 34.8 %; MEAN CORPUSCULAR HEMOGLOBIN 30.9 pg (27.0-31.0); MEAN CORPUSCULAR HGB CONC 32.9 g/dL (32.0-36.0); MEAN CORPUSCULAR VOLUME 93.9 fL (81.0-99.0); MEAN PLATELET VOLUME 11.2 fL (7.9-10.8); MONOCYTES # (AUTO) 0.4 10^3/uL (0.0-1.0); MONOCYTES % (AUTO) 8.1 %; NEUTROPHILS # (AUTO) 2.5 10^3/uL (1.5-6.6); NEUTROPHILS % (AUTO) 47.2 %; PLT - PLATELET COUNT 214 10^3/uL (130-450); RED BLOOD COUNT 4.11 10^6/uL (4.20-5.40); RED CELL DISTRIBUTION WIDTH 13.1 % (12.0-15.0); WHITE BLOOD COUNT 5.3 x10^3/uL (4.8-10.8)
--- NOTE | 2023-03-10 08:13 | XRAY Report ---
PROCEDURE: Chest 1 View X-Ray INDICATIONS: Chest Pain TECHNIQUE: One view of the chest was acquired. COMPARISON: CXR 02/10/2023, 02/05/2023. CT chest 05/04/2021. FINDINGS: Surgical changes and devices: Cholecystectomy clips. Lungs and pleura: No pleural effusions or pneumothorax. Lungs are clear. Mediastinum: Mediastinal contours appear normal. Heart size is normal. Bones and chest wall: No suspicious bony lesions. Overlying soft tissues appear unremarkable. IMPRESSION: No acute cardiopulmonary process. Reviewed by: Matt Pretty MD on 03/10/2023 8:12 AM PDT Approved by: Matt Pretty MD on 03/10/2023 8:12 AM PDT Station ID: [id number]
[2023-03-10 08:17] LABS: ALBUMIN 3.4 g/dL (3.2-5.5); ALBUMIN/GLOBULIN RATIO 0.9 (1.0-2.2); BILIRUBIN,TOTAL 0.5 mg/dL (0.2-1.0); CREATININE 0.9 mg/dL (0.4-1.0); POTASSIUM 3.9 mmol/L (3.5-5.0); TOTAL PROTEIN 7.1 g/dL (6.7-8.2)
--- NOTE | 2023-03-10 08:17 | ED Physician Documentation ---
PD HPI CHEST PAIN - Stated complaint Stated Complaint: CHEST PAIN - Chief complaint Chief Complaint: Cardiac - History obtained from History obtained from: Patient - History of Present Illness Timing - onset: Today Timing - onset during: Rest (while driving) Timing - duration: Minutes (10-15) Timing - details: Abrupt onset, Now resolved Quality: Pressure, Tightness, Sharp Location: Substernal, Left neck, Right neck, Left jaw, Right jaw Radiation: Jaw, Neck Improved by: Nitro (took 2.) Associated symptoms: Shortness of air, Feeling faint / dizzy. No: Diaphoresis, Nausea, Vomiting, General Weakness, Palpitations, Cough Similar symptoms before: No diagnosis, Work up / diagnostics (has had trops/EKG and followup with cardiology) Recently seen: Clinic - Additional information Additional information: 42-year-old Edgardo Donaldson has a history of pollen allergy and asthma and she was driving her car this morning when she developed substernal chest pressure and pain radiating into her jaw and neck. She has had 2 prior episodes in the past 2 months and she has been in to see us here in the emergency department and she has been in to see cardiology in follow-up. She had 1 subtle finding of concern with a troponin trending 1 tick above normal. She relates that she has not otherwise been ill she has some nasal allergies she will periodically have some muffled hearing she denies that right this minute. She is not coughing or producing phlegm. She has not had a fever. She does feel like she could use a breathing treatment. Review of Systems Constitutional: denies: Fever Eyes: denies: Decreased vision Ears: denies: Ear pain Nose: denies: Congestion Throat: denies: Sore throat Cardiac: reports: Chest pain / pressure. 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 HEENT: Rhinoplasty Derm: Other - Present Medications Home Medications: Ambulatory Orders Medication Instructions Recorded Confirmed Albuterol Sulfate [Proair Hfa] 1 puffs INH DAILY PRN 01/23/15 03/10/23 Ferrous Sulfate 325 mg ORAL DAILY 11/22/20 03/10/23 Sumatriptan Inj [Imitrex Inj] 6 mg SUBQ ONCE PRN 11/22/20 03/10/23 desogestreL-ethinyl estradioL 1 each PO DAILY 11/22/20 03/10/23 [Enskyce 28 Tablet] Simvastatin [Zocor] 20 mg PO DAILY #30 tablet 02/05/23 03/10/23 Aspirin [[place]] See Rx Instructions .ROUTE .COMPLEX 03/10/23 03/10/23 Butalb/Acetam/Caff 50/325/40 1 each PO Q4-6H PRN 03/10/23 03/10/23 [Fioricet] Metoprolol Succinate [Toprol Xl] See Rx Instructions .ROUTE .COMPLEX 03/10/23 03/10/23 - Allergies Allergies/Adverse Reactions: Allergies Allergy/AdvReac Type Severity Reaction Status Date / Time Sulfa (Sulfonamide Allergy Edema Verified 03/10/23 15:55 Antibiotics) - Social History Does the pt smoke?: No Smoking Status: Never smoker Does the pt drink ETOH?: No Does the pt have substance abuse?: No - Immunizations Immunizations are current?: Yes - POLST Patient has POLST: No PD ED PE NORMAL - Vitals Vital signs reviewed: Yes (hypertensive mild) - General General: Alert and oriented X 3, No acute distress, Well developed/nourished - HEENT HEENT: Atraumatic, PERRL, EOMI - Neck Neck: Supple, no meningeal sign, No bony TTP - Cardiac Cardiac: RRR, No murmur - Respiratory Respiratory: No respiratory distress, Clear bilaterally, Other (no chest wall tenderness) - Abdomen Abdomen: Soft, Non tender - Back Back: No CVA TTP, No spinal TTP - Derm Derm: Normal color, Warm and dry, No rash - Extremities Extremities: No deformity, No edema - Neuro Neuro: Alert and oriented X 3, packaging supervisor 2-12 intact, No motor deficit, No sensory deficit, Normal speech Eye Opening: Spontaneous Motor: Obeys Commands Verbal: Oriented GCS Score: 15 - Psych Psych: Normal mood, Normal affect Results - Vitals Vitals: Vital Signs - 24 hr 03/10/23 03/10/23 03/10/23 07:41 08:45 08:59 Temperature 36.6 C Heart Rate 82 72 58 L Respiratory 18 15 10 L Rate Blood Pressure 144/81 H 127/85 H O2 Saturation 98 98 03/10/23 03/10/23 03/10/23 09:00 09:29 09:45 Temperature Heart Rate 62 70 71 Respiratory 10 L 18 18 Rate Blood Pressure 120/68 112/68 126/83 H O2 Saturation 99 97 98 03/10/23 03/10/23 11:17 12:16 Temperature 36.4 C L Heart Rate 70 71 Respiratory 15 16 Rate Blood Pressure 124/60 125/89 H O2 Saturation 99 100 Oxygen O2 Source Room air - EKG (time done) 0745 EKG releavant findings:: EKG personally interpreted by author of this note. Relevant findings are: Rate: Rate (enter#) (70) Rhythm: NSR, LAE [place]: Normal Intervals: Normal [place] QRS: Normal Ischemia: Normal ST segments Compare to prior EKG: Unchanged from prior EKG (SPT 02-10-23 no significant changes. ) Computer interpretation: Agree with computer - Labs Labs: Laboratory Tests 03/10/23 03/10/23 03/10/23 07:58 07:58 07:58 WBC 5.3 RBC 4.11 L Hgb 12.7 Hct 38.6 MCV 93.9 MCH 30.9 MCHC 32.9 RDW 13.1 Plt Count 214 MPV 11.2 H Neut # (Auto) 2.5 Lymph # (Auto) 1.9 [place] # (Auto) 0.4 Eos # (Auto) 0.5 Baso # (Auto) 0.1 Absolute Nucleated RBC 0.00 Nucleated RBC % 0.0 D-Dimer Sodium 139 Potassium 3.9 Chloride 104 Carbon Dioxide 28 Anion Gap 7.0 BUN 19 Creatinine 0.9 Estimated GFR (MDRD) 69 L Glucose 96 Calcium 9.0 Total Bilirubin 0.5 AST 16 ALT 15 Alkaline Phosphatase 38 L Troponin I High Sens 9.0 Total Protein 7.1 Albumin 3.4 Globulin 3.7 Albumin/Globulin Ratio 0.9 L Lipase 33 Urine Color Urine Clarity Urine pH Ur Specific [place] Urine Protein Urine Glucose (UA) Urine Ketones Urine Occult Blood Urine Nitrite Urine Bilirubin Urine Urobilinogen Ur Leukocyte Esterase Ur Microscopic Review Urine Culture Comments Urine HCG, Qual 03/10/23 03/10/23 03/10/23 08:42 09:39 10:18 WBC RBC Hgb Hct MCV MCH MCHC RDW Plt Count MPV Neut # (Auto) Lymph # (Auto) [place] # (Auto) Eos # (Auto) Baso # (Auto) Absolute Nucleated RBC Nucleated RBC % D-Dimer 407.6 H Sodium Potassium Chloride Carbon Dioxide Anion Gap BUN Creatinine Estimated GFR (MDRD) Glucose Calcium Total Bilirubin AST ALT Alkaline Phosphatase Troponin I High Sens 7.9 Total Protein Albumin Globulin Albumin/Globulin Ratio Lipase Urine Color YELLOW Urine Clarity CLEAR Urine pH 7.0 Ur Specific [place] 1.010 Urine Protein NEGATIVE Urine Glucose (UA) NEGATIVE Urine Ketones NEGATIVE Urine Occult Blood NEGATIVE Urine Nitrite NEGATIVE Urine Bilirubin NEGATIVE Urine Urobilinogen 0.2 (NORMAL) Ur Leukocyte Esterase NEGATIVE Ur Microscopic Review NOT INDICATED Urine Culture Comments NOT INDICATED Urine HCG, Qual NEGATIVE - Rads (name of study) chest Relevant Findings:: Prelim report reviewed (Impression: No acute cardiopulmonary process.), EMP independent interpretation of test CT angio chest Relevant Findings:: Prelim report reviewed (Impression: 1. No pulmonary embolus. No acute pulmonary parenchymal pathology.), EMP independent interpretation of test PD Medical Decision Making - ED course Complexity details: reviewed old records, reviewed results, re-evaluated patient, considered differential, d/w patient ED course: 42-year-old female with recurrent chest pain relieved by nitroglycerin presents to the emergency department after an episode of chest pain while she was driving. 2 negative troponins were obtained. The patient did have recurrence of pain while she was in the emergency department and had prompt relief with the use of nitroglycerin. We obtained a second electrocardiogram with this episode of pain and found a nonspecific Q wave in lead III isolated. I consulted the technical solutions engineer in [place] Dr. Miller who considered transfer of the patient and when we repeated our troponin and found no change and found no evidence of pulmonary embolism on a angiogram the patient's case and history appeared more reassuring and a decision was made for outpatient follow-up. The patient has follow-up tomorrow for an echocardiogram and she is instructed to contact Dr. Ortiz's office today for next available appointment. I did discuss with the patient the potential for hyperventilation causing these episodes. She has been driving her car when they have happened. I did describe to her that the hyperventilation will usually cause some numbness around the lips and she indicated to me that she had felt this numbness around her lips while she was here in the department. Departure - Departure Disposition: 01 Home, Self Care Clinical Impression: Atypical chest pain Condition: Stable Instructions: ED Chest Pain Atypical Unkn Cause Follow-Up: Warren Ortiz MD [Physician No Access] - Katherine Ruff PA-C [Provider Admit Priv/Credential] - Comments: Karley, today we did not find abnormalities to your work-up, with the ex ception of an elevated D-dimer which is a nonspecific test. We follow that up with an angiogram of your chest which was negative. I did not see calcifications to the coronary arteries on the CAT scan. This makes the possibility of coronary disease less likely. Today the 2 numbers that we got for your sensitive measure of heart damage were negative. I have talked to the technical solutions engineer Dr. Miller who is on-call for Dr. Ortiz and they would like you to call Dr. Ortiz's office today to set up the next available appointment. Follow-up with your any echocardiogram tomorrow as planned. In the meantime if you have recurrence of pain take your nitroglycerin and follow-up. Discharge Date/Time: 03/10/23 12:20
[2023-03-10] MEDS ORDERED: IPRATROPIUM/ALBUTEROL 3 ML NEB INH STA (08:31)
[2023-03-10] MEDS ORDERED: NITROGLYCERIN SL 0.4 MG TABLET SL STA (08:47)
[2023-03-10 09:46] LABS: BILIRUBIN,URINE NEGATIVE (NEGATIVE); GLUCOSE, URINE (UA) NEGATIVE (NEGATIVE); KETONES,URINE (UA) NEGATIVE (NEGATIVE); LEUKOCYTE ESTERASE, URINE NEGATIVE (NEGATIVE); NITRITE,URINE NEGATIVE (NEGATIVE); OCCULT BLOOD,URINE NEGATIVE (NEGATIVE); PROTEIN,URINE NEGATIVE (NEGATIVE); UROBILINOGEN,URINE 0.2 (NORMAL) E.U./dL (NORMAL)
[2023-03-10 09:48] LABS: CLARITY,URINE CLEAR (CLEAR); HCG UR QUAL NEGATIVE
[2023-03-10] MEDS ORDERED: iohexoL-300 100 ML VIAL ONE (09:52)
[2023-03-10] MEDS ORDERED: iohexoL-300 100 ML VIAL IVP ONE (10:16)
--- NOTE | 2023-03-10 10:31 | CT Report ---
PROCEDURE: ANGIO CHEST W/WO INDICATIONS: cp elevated d-dimer CONTRAST: 80ml Omni 300 TECHNIQUE: After the administration of intravenous contrast, 2 mm axial images were acquired from the pulmonary apices to the posterior costophrenic angles during the arterial phase. In addition, 1 mm lung kernel and 5 mm soft tissue kernel reconstructions were performed. 3-dimensional coronal oblique maximum int ensity projection (MIP) reformats, 8 mm axial MIP, and 5 mm coronal and sagittal MPR reformats were t hen performed through the thorax. For radiation dose reduction, the following was used: automated exp osure control, adjustment of mA and/or kV according to patient size. COMPARISON: Chest CT 05/04/2021 FINDINGS: Image quality: Adequate. There is respiratory motion in the lower lungs precluding good evaluation of peripheral pulmonary arteries.. Large vessels: No filling defects within the opacified pulmonary arteries, accounting for motion and contrast timing. No evidence of acute aortic syndrome or aortic aneurysm. Lungs and pleura: No consolidation. No pleural effusions. No pneumothorax. Central and peripheral ai rways are normal caliber without bronchial wall thickening or bronchiectasis. No suspicious lung nodu les or masses. Mediastinum: Heart size is normal. No pericardial effusion. No large vessel abnormality. No mediastin al adenopathy by size criteria. Chest wall and lower neck: Thyroid is unremarkable. No axillary or supraclavicular adenopathy by size . Bones: Moderate midthoracic endplate degenerative spur formation. Upper Abdomen: There are surgical changes of cholecystectomy and partial gastrectomy. Otherwise unrem arkable upper abdominal organs. IMPRESSION: 1. No pulmonary embolus. 2. No acute pulmonary parenchymal pathology. Reviewed by: Yolanda Tamez MD on 03/10/2023 9:30 AM KATHIE Approved by: Yolanda Tamez MD on 03/10/2023 9:30 AM AKDT Station ID: [id number]
[2023-03-10 12:20] VITALS: BP 125/89
== END 2023-03-10 12:20 | disposition home or self-care (01) ==
LOC: ED 07:37
DX: R07.89 Other chest pain (principal); R89.2 Abnormal level of other drugs, medicaments and biological substances in specimens from other organs, systems and tissues; G47.10 Hypersomnia, unspecified; G47.8 Other sleep disorders; R51.9 Headache, unspecified; R06.83 Snoring; R06.81 Apnea, not elsewhere classified; E66.9 Obesity, unspecified; Z68.39 Body mass index [BMI] 39.0-39.9, adult
CPT/HCPCS: 36415; 71045; 71275; 80053; 81003; 81025; 83690; 84484; 85025; 85379; 93005; 94640; 99203; 99212; 99283; 99284; Q9967; 81001; 87086

== ENCOUNTER 2023-03-10 15:21 | Outpatient (CLI) | payer OTHER ==
--- NOTE | 2023-03-10 16:24 | Sleep Patient Instructions ---
Sleep Center Visit Summary - Patient Visit Information Reason for Visit: Initial consult for evaluation of sleep disordered breathing and other sleep issues. - Patient Instructions Instructions Attached: Sleep Study Home Monitor Additional Instructions: You will be completing a sleep study, either an in-lab polysomnography (PSG) or home sleep study (HST). You will follow-up in the sleep care office after the sleep study is completed to hear the results and talk about therapy, if needed. You will be called by our office staff to schedule this appointment, but you may contact us with any questions. - Clinic Information Contact: [facility] [address] [place] [address] [email or web address] T: [phone]
--- NOTE | 2023-03-10 16:27 | SLEEP CARE CONSULTATION ---
Information from patient questionnaire entered by Elaine Webber. I have reviewed and concur with the information entered by Elaine Webber. This document represents the service I personally performed and the decisions made by me, Elmira Del Angel ARNP. History of Present Illness Service Date and Time: 03/10/2023 1521 Reason for Visit: New patient Chief Complaint: reports: Unrefreshed sleep, Snoring, Excessive daytime sleepiness, Fatigue, Frequent awakenings at night Date of Onset: FEW YRS Usual bedtime: 730-8PM Time it takes to fall asleep: 30-45MIN; sometimes quicker Snores at night: Yes Observed to quit breathing while asleep: No Sleeps alone due to snoring: Yes Number of times waking at night: 4-5 Reasons for waking at night: reports: Snoring, Gasping for air, Bathroom. denies: Choking Toss, Turn, or Twitch while sleeping: Yes Recalls having dreams: Yes Usually gets out of bed at: 6AM Feels refreshed in the morning: No Morning headache: Yes (daily, last about an hour; sometimes has to take analgesic) Sleepy or fatigued during the day: Yes Ever fallen asleep while driving: No Takes day naps: Yes (sometimes, very rare; on weekends) Dreams during day naps: No Prior sleep studies: No Additional HPI information: I had the pleasure of seeing JANNETH CORDOVA today regarding the possibility of her having a sleep disorder. Her current complaints are excessive daytime sleepiness, fatigue, frequent night awakenings, snoring and unrefreshed sleep. She states she feels tired every day and weak. She does not feel rested in the mornings. She is waking up "constantly" during the night, mostly for the bathroom. She states she is normally breathing through her mouth. She states her sleeps separate because of her loud snoring. He thinks he remembers her stopping breathing at night. She states with naps she can wake herself snoring. She has occasionally woke herself with gasping for air. 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 Patient is and lives in [place]. Have you smoked in the past 12 months: No (when in 20s socially) Cigarettes per day (20/pack): 0 (SMOKE WHEN DRINKING) Alcohol use: Yes Alcohol amount and frequency: 2-3 1-2 A YR Caffeine use: Yes Caffeine amount and frequency: 24OZ 2 A WEEK Family History Family history of sleep disordered breathing: Yes Family Hx Sleep Apnea: Mother: Snoring, Sleep apnea - Treated Allergies and Home Medications Known drug allergies: Yes (SULFA ANTBIO) Drug allergies reviewed: Yes Home medication list reviewed: Yes (see updated list in EMR; not taking metoprolol yet) Allergy and home medication list: Allergies Sulfa (Sulfonamide Antibiotics) Allergy (Verified 03/09/23 10:06) Edema Review of Systems Weight gain over past 5 years: 40 Cardiovascular: reports: chest pain. denies: high blood pressure Respiratory: reports: shortness of breath Gastrointestinal: denies: heartburn Urinary: reports: frequency Neurological: reports: headaches Psychiatric: denies: anxiety, depression Ear/Nose/Throat: denies: tonsillectomy, wisdom teeth removed Endocrine: denies: thyroid disease Immunologic: reports: sneezing Physical Exam Vital signs obtained and entered by: ELAINE Pitt MA Blood Pressure: 100/60 (LEFT ARM) Cuff size: long Heart Rate: 102 O2 Saturation: 98 Height: 5 ft 7 in Weight: 254 lb 3.2 oz Body Mass Index: 39.8 BMI Classification: Obese Neck circumference: 14.25 Mouth and throat: narrow oropharynx Soft palate: long Hard palate: normal Uvula: normal Uvula visualization: 25% Mallampati Class III Tongue: normal in size Tonsils: 2+ (touching on left) Neck: normal w/o lymphadenopathy or thyromegaly Heart: regular rate and rhythm Lungs: clear bilaterally Impression and Plan 1. Suspected Obstructive Sleep Apnea-Hypopnea Syndrome, as suggested by a history of loud and irregular snoring, observed cessation of breath while asleep, gasping or choking in sleep, morning headache, frequent awakening during the night, unrefreshed sleep, and excessive daytime sleepiness. Narrow oropharynx and obesity are common predisposing factors for obstructive sleep apnea-hypopnea syndrome. I recommend proceeding to polysomnography to confirm the diagnosis and to assess severity. If the patient has significant sleep disordered breathing, a manual CPAP titration study will also be performed to find the optimal treatment pressure. I informed the patient of what the sleep studies involve and after some discussion, obtained agreement to proceed. The pathophysiology of obstructive sleep apnea-hypopnea syndrome was discussed with the patient and health risks of cardiovascular and cerebrovascular disease if not treated. Risks of drowsy driving discussed in detail and patient advised to avoid long distance driving and to candy puller at the first sign of drowsiness. Patient agreed to plan. * Schedule polysomnography +- manual CPAP titration study and return in 1-2 weeks after the study to discuss result and initiate therapy. * Avoid long distance driving or driving when feeling sleepy. * Avoid alcohol, sedative and muscle relaxant around bedtime. * Attempt to lose weight. * Review instructions provided by trained office staff on how to prepare for the sleep study. * Return for follow-up after sleep study completed. Counseling Topics: Weight loss health impact Visit Type: In Office Time Spent with Patient (minutes): 30 Provider Statement: I spent 100% of the Face to Face Visit with the patient with greater than 50% spent counseling the patient and coordination of care.
[2023-03-10 16:31] VITALS: BP 100/60
== END 2023-03-10 15:22 | disposition home or self-care (01) ==
LOC: SC 15:21
PROVIDERS: ATTEND Nurse Practitioner Family
DX: G47.10 Hypersomnia, unspecified (principal); G47.8 Other sleep disorders; R51.9 Headache, unspecified; R06.83 Snoring; R06.81 Apnea, not elsewhere classified; E66.9 Obesity, unspecified; Z68.39 Body mass index [BMI] 39.0-39.9, adult
CPT/HCPCS: 99203; 99212

== ENCOUNTER 2023-04-10 12:24 | Outpatient (CLI) | payer OTHER | END 2023-04-10 12:25 | disposition home or self-care (01) | LOC: SC 12:24 | PROVIDERS: ATTEND Nurse Practitioner Family | DX: G47.33 Obstructive sleep apnea (adult) (pediatric) (principal); R09.02 Hypoxemia; E66.9 Obesity, unspecified; Z68.39 Body mass index [BMI] 39.0-39.9, adult | CPT/HCPCS: 95806 ==

== ENCOUNTER 2023-05-07 11:50 | Outpatient (CLI) | payer OTHER ==
--- NOTE | 2023-05-07 11:52 | SLEEP CARE CONSULTATION ---
Information from patient questionnaire entered by Yun Webber. I have reviewed and concur with the information entered by Yun Webber. This document represents the service I personally performed and the decisions made by , Elmira Del Angel ARNP. History of Present Illness Service Date and Time: 05/07/2023 1140 Initial [place] Sleepiness Scale score: 6 (03/10/23) Current [place] Sleepiness Scale score: 8 (05/07/23) Additional HPI information: JANNETH CORDOVA returns via video telehealth visit for follow up and results of the recently performed home sleep study. The HST showed mild obstructive sleep apnea with an average AHI of 8.8 and nate oxygen saturation of 87%. I explained the pathophysiology behind obstructive sleep apnea. We then spent quite a bit of time discussing different treatment options. For mild obstruct nicole sleep apnea, surgery and oral appliance are alternatives to nasal CPAP therapy but in moderate or severe cases, nasal CPAP is the most effective and reliable treatment. Because apnea is primarily in supine position, then positional management therapy could be effective. Methods discussed such as positioning with pillows, using a T-shirt with tennis balls in the back or commercial products that have a pillow format on back to prevent supine sleep. I reviewed the impact of weight changes on sleep apnea and strongly recommended losing weight. After some discussion, the patient opted to go with the nasal CPAP therapy. Nasal autoCPAP set at 4-15 cmH20 will be ordered with rationale explained. A manual titration study will be ordered if unable to find optimal pressure with office adjustments. I explained how CPAP machine works and what to expect when using the machine. Using CPAP every night in order to get used to it was emphasized. Patient advised to put CPAP mask on before getting into bed so as not to fall asleep without CPAP. To assist acclimation to CPAP use, it could also be used for a short time during day while reading or watching TV. The patient was instructed to call the CPAP supplier to discuss any mechanical problem that may occur. If the mask given is uncomfortable or is difficult to keep on through the night even with adjustment, contact the CPAP supplier as many will replace with another mask style if notified before 30 days. If snoring or perceives is not getting enough air or too much air from the machine, notify this office. Patient does not drink alcohol. Patient was cautioned about risks of drowsy driving until sleepiness symptoms resolve. Patient denies drowsy driving. Sleep Study - Results Type of Sleep Study: Home sleep study (COMPLETED 04/10/23) Prior sleep studies: No Polysomnography/Home Sleep Study results: Physician Impression: The quality of the study is good. The length of the study is adequate (> 240 minutes). Please also see the tabulated and graphic data. 1. Obstructive Sleep Apnea-Hypopnea (ICD-10 G47.33), mild, with an AHI of 8.8/hr and nate SaO2 of 87%. During the study, the patient had 5 apneas (5 obstructive, 0 central, 0 mixed) and 67 hypopneas. The longest episode lasted 80.0 seconds. The respiratory events occurred almost exclusively during supine sleep (supine AHI was 20.4 and non-supine, 2.11). 2. Hypoxemia (ICD-10 R09.02), minimal, with the lowest oxygen saturation of 87 % and 0.2 minutes with SaO2 under 90%. Baseline oxygen saturation was normal (Average oxygen saturation was 95%). Allergies and Home Medications Known drug allergies: Yes (sulfa) Drug allergies reviewed: Yes Home medication list reviewed: Yes (no changes) Allergy and home medication list: Allergies Sulfa (Sulfonamide Antibiotics) Allergy (Verified 05/06/23 16:39) Edema Review of Systems Review of systems same as previous: No (ANGIO GRAM) Physical Exam Vital signs obtained and entered by: YUN Pitt MA Height: 5 ft 7 in (PER PT) Weight: 260 lb (PER PT) Body Mass Index: 40.7 BMI Classification: Morbidly Obese Impression and Plan 1. Obstructive Sleep Apnea-Hypopnea Syndrome, mild, with lowest oxygen saturation of 87%. Obviously this is the cause of the patients symptoms of unrefreshed sleep, and excessive daytime sleepiness. Positive pressure therapy could benefit asthma and migraines. As mentioned above, the patient will be started on nasal autoCPAP therapy with pressure set at 4-15 cmH2O. Compliance guidelines also reviewed. A copy of compliance guidelines will be given for reference at check out. Because the apnea is more severe supine, I instructed to avoid sleeping supine using pillow positioning until able to start CPAP use. 2. Hypoxemia, minimal, with a nate oxygen saturation of 87% and 0.2 minutes spent under 90%. Her baseline oxygen saturation was normal with an average oxygen saturation of 95%. 2. Obesity, unspecified. Currently patients BMI is 40.7. Obesity increases the risk of apnea, CPAP pressure requirements and overall health risks especially cardiovascular and diabetes. Thus patient is advised to lose weight. * Nasal auto CPAP therapy, pressure at 4-15 cm H2O. * Attempt to lose weight. * Avoid alcohol consumption near bedtime. * Avoid supine sleep until using CPAP. * The patient is again cautioned about driving until sleepiness completely resolves. * Return one month after CPAP obtained. I will assess response to therapy and compliance at that time. Counseling Topics: Sleeping position, Weight loss health impact Visit Type: Telehealth Video Video Type: [employer] Patient Location: Home Location of Provider: Office Patient agrees and consents to this telehealth visit type: Yes Patient agrees to have their insurance billed: Yes Time Spent with Patient (minutes): 20 Provider Statement: I spent 100% of the Telehealth Video Call with the patient with greater than 50% spent counseling the patient and coordination of care.
== END 2023-05-07 11:51 | disposition home or self-care (01) ==
LOC: SC 11:50
PROVIDERS: ATTEND Nurse Practitioner Family
DX: G47.33 Obstructive sleep apnea (adult) (pediatric) (principal); R09.02 Hypoxemia; E66.01 Morbid (severe) obesity due to excess calories; Z68.41 Body mass index [BMI] 40.0-44.9, adult

== ENCOUNTER 2023-07-10 11:05 | Outpatient (CLI) | payer OTHER ==
--- NOTE | 2023-07-10 10:55 | SLEEP CARE CONSULTATION ---
Information from patient questionnaire entered by Yun Webber. I have reviewed and concur with the information entered by Yun Webber. This document represents the service I personally performed and the decisions made by , Elmira Del Angel ARNP. History of Present Illness Service Date and Time: 07/10/2023 1020 Previous diagnosis: Mild, Obstructive Sleep Apnea-Hypopnea Syndrome AHI: 8.8 (03/2023) Reason for follow up: first compliance Equipment type: CPAP (RESMED AIRSENSE 11 SET UP 06/03/23) Equipment obtained from: [employer] (got initial supplies) Mask style: Nasal pillows (Dreamwear pillows and P10) Backup mask available: No Prior sleep studies: No Type of Sleep Study: Home sleep study (COMPLETED 04/10/23) HPI additional information: JANNETH CORDOVA was diagnosed to have mild, AHI 8.8, obstructive sleep apnea- hypopnea syndrome and returns via video visit today for CPAP therapy first compliance follow-up. Sleep Study - Results Type of Sleep Study: Home sleep study (COMPLETED 04/10/23) Prior sleep studies: No CPAP Compliance Data - Data Reviewed with Patient Average duration of nightly device use: 2 minutes Compliance rate %: 0 (330 days used) Current pressure setting (cmH2O): 4-15 Average residual AHI: 10 Subjective Missed days of use due to: reports: mask issues Patient concerns: reports: mask discomfort Observed to snore while using device: No Initial [place] Sleepiness Scale score: 6 (03/10/23) Current [place] Sleepiness Scale score: 2 Allergies and Home Medications Known drug allergies: Yes (sulfa) Drug allergies reviewed: Yes Home medication list reviewed: Yes (Topiramate) Allergy and home medication list: Allergies Sulfa (Sulfonamide Antibiotics) Allergy (Verified 07/09/23 13:47) Edema Review of Systems Review of systems same as previous: Yes (no changes) Physical Exam Vital signs obtained and entered by: Elmira Villegas NP Height: 5 ft 7 in (PER PT) Impression and Plan 1. Obstructive Sleep Apnea-Hypopnea Syndrome, mild, with poor treatment compliance and poor apnea control. On CPAP therapy, patient has not been able to tolerate the mask on her face and has not really been using her CPAP. Goals for apnea control discussed. I reviewed with her other options for treating her mild UTE. Since patients apnea is primarily in supine position, patient advised to try positional therapy and agreed with plan. She is also advised to lose weight as this will reduce snoring and apnea. An oral appliance can also be used for snoring but often is not covered by insurance. Follow up is scheduled for one month to check effectiveness and if further evaluation indicated such a repeat s tudy in supine position only to see if additional treatment indicated. Patient's apnea severity and rationale for treatment to reduce apnea, improve sleep quality and reduce cardiovascular and cerebrovascular events was reviewed. I also reviewed the benefit of consistent device use of CPAP for asthma and migraines. * Discontinue CPAP therapy * Start positional therapy * Call this office if any problems * Return for follow up in [1-2 months], or sooner if concerns arise Counseling Topics: Sleeping position Visit Type: Telehealth Video Video Type: [employer] Patient Location: Home Location of Provider: Office Patient agrees and consents to this telehealth visit type: Yes Patient agrees to have their insurance billed: Yes Time Spent with Patient (minutes): 23 Provider Statement: I spent 100% of the Telehealth Video Call with the patient with greater than 50% spent counseling the patient and coordination of care.
== END 2023-07-10 11:06 | disposition home or self-care (01) ==
LOC: SC 11:05
PROVIDERS: ATTEND Nurse Practitioner Family
DX: G47.33 Obstructive sleep apnea (adult) (pediatric) (principal)

== ENCOUNTER 2023-07-25 08:28 | Outpatient (CLI) | payer OTHER ==
--- NOTE | 2023-07-27 10:12 | MRI Report ---
PROCEDURE: ANKLE WO - LT INDICATIONS: DIFFICULTY WALKING TECHNIQUE: Noncontrast sagittal T1 spin echo and T2 fast spin echo with fat saturation, axial proton density fas t spin echo and T2 fast spin echo with fat saturation, coronal T1 spin echo and T2 fast spin echo wit h fat saturation through the ankle/hindfoot. COMPARISON: None. FINDINGS: Image quality: Excellent. Bones and joints: Mild soft tissue swelling and edema over medial aspect of distal lower leg extendin g to the midfoot and hindfoot is seen. No discrete drainable fluid collection. No bone marrow contusi ons or fractures. No hindfoot coalitions. No osteochondral injuries of the talar dome. Well-defined plantar calcaneal enthesophyte is seen. Small amount of fluid within tibiotalar joint and subtalar j oint is seen, no gross loose bodies. Medial structures: The posterior tibialis tendon is thickened with small amount of fluid distending tendon sheath at the level of mid to distal talus and talonavicular joint. The flexor digitorum longu s, and flexor hallucis longus tendons are intact. The posterior tibial neurovascular bundle appears normal within the tarsal tunnel, without extrinsic mass effect. The deep layer (anterior and posteri or tibiotalar ligaments) and superficial layer (tibionavicular, tibiospring, and tibiocalcaneal ligam ents) of the deltoid ligament appear normal. The spring ligament components (superomedial calcaneona vicular, medioplantar oblique calcaneonavicular, and inferoplantar longitudinal ligaments) are intact . Lateral structures: The anterior talofibular, calcaneofibular, and posterior talofibular ligaments a ppear intact. More superiorly, the anterior and posterior tibiofibular ligaments appear normal, as i s the intermalleolar ligament. The tibiofibular syndesmosis is normal in width at 2 mm or less. The peroneus longus and brevis tendons demonstrate normal location and morphology. Adjacent bony perone al tubercle and retrotrochlear prominence are normal in size. The sinus tarsi demonstrates normal fa tty signal, without edema, fibrosis, or cyst formation. Visualized sinus tarsi components (cervical ligament, interosseous talocalcaneal ligament, roots of the inferior extensor retinaculum) appear nor mal. Anterior structures: The tibialis anterior and extensor hallucis longus tendons are intact. There is high-grade partial thickness tear involving the extensor digitorum longus tendon at the level dorsal to the talonavicular joint with moderate amount of surrounding fluid and discontinuous fiber, full-t hickness rupture cannot be excluded. Posterior and plantar structures: Achilles tendon is intact. Medial and lateral bands of the planta r fascia are of normal thickness. Edema within plantar foot muscles is noted. No intramuscular mass o r fluid collection. No full-thickness muscle fiber rupture. IMPRESSION: 1. Finding is suggestive of high-grade partial to full-thickness rupture involving extensor digitorum longus tendon at the level dorsal to the talonavicular joint with moderate amount of surrounding flu id. 2. Low to moderate grade tenosynovitis involving posterior tibialis tendon at the level of distal raad us and talonavicular joint. 3. Medial and lateral ankle ligaments are intact. 4. Soft tissue edema and swelling over medial aspect of distal lower leg and ankle joint. No soft tis keena mass or drainable fluid collection. Mild muscle strain involving visualized plantar foot muscles. 5. No fracture or dislocation. No osteochondral injuries of talar dome. Small tibiotalar and subtalar joint effusion, no gross loose bodies. Reviewed by: Milton Martin MD on 07/27/2023 10:11 AM PST Approved by: Milton Martin MD on 07/27/2023 10:11 AM PST Station ID: [id number]
== END 2023-07-25 08:29 | disposition home or self-care (01) ==
LOC: DI 08:28
PROVIDERS: ATTEND Podiatrist
DX: M65.9 Synovitis and tenosynovitis, unspecified (principal); R60.0 Localized edema; M25.472 Effusion, left ankle

== ENCOUNTER 2023-07-30 07:15 | Outpatient (CLI) | payer OTHER | END 2023-07-30 07:30 | disposition home or self-care (01) | LOC: LAB.N 07:15 | PROVIDERS: ATTEND Physician Assistant Medical | DX: J02.9 Acute pharyngitis, unspecified (principal) | CPT/HCPCS: 87070 ==

== ENCOUNTER 2023-11-19 18:43 | Outpatient (CLI) | payer OTHER ==
--- NOTE | 2023-11-20 12:14 | XRAY Report ---
PROCEDURE: Cervical Spine 4-5V INDICATIONS: NECK PAIN TECHNIQUE: 5 views of the cervical spine acquired. COMPARISON: None. FINDINGS: Bones: No fractures or dislocations to the T1 level. Oblique images demonstrate no bony foraminal s tenoses. Straightening of cervical lordosis. No significant spondylitic changes. Soft tissues: No prevertebral soft tissue swelling. IMPRESSION: Cervical spine without acute osseous abnormalities. Straightening of cervical lordosis likely related to positioning and/or concurrent muscle spasms. Reviewed by: Madhav Archer MD on 11/20/2023 12:12 PM PDT Approved by: Madhav Archer MD on 11/20/2023 12:12 PM PDT Station ID: [id number]
== END 2023-11-19 18:44 | disposition home or self-care (01) ==
LOC: DI 18:43
PROVIDERS: ATTEND Acupuncturist
DX: M54.2 Cervicalgia (principal)

== ENCOUNTER 2023-12-10 11:10 | Outpatient (CLI) | payer OTHER ==
--- NOTE | 2023-12-11 08:38 | Mammography Report ---
BILATERAL DIGITAL SCREENING MAMMOGRAM 3D/2D: 12/10/2023 CLINICAL: Routine screening. Comparison is made to exams dated: 12/08/2022 mammogram and 03/28/2021 mammogram - [facility]. Both breasts are heterogeneously dense, which may obscure small masses (category c / 51-75% glandular tissue). No significant masses, calcifications, or other findings are seen in either breast. There has been no significant interval change. IMPRESSION: NEGATIVE There is no mammographic evidence of malignancy. A 1 year screening mammogram is recommended. Based on the Tyrer Cuzick model (a risk assessment model) the patient's lifetime risk is 16.5% and he r 10 year risk is 2.4%. According to the ACR, ACS, and NCCN guidelines, an annual breast MRI exam deniz ng with mammogram is recommended if the patient's lifetime risk is 20% or greater. This exam was interpreted at Station ID: [id number]. NOTE: For mammograms, a report in lay terms will be sent to the patient. Approximately 15% of breast malignancies will not be visualized mammographically. In the management of a palpable breast mass, a negative mammogram must not discourage biopsy of a clinically suspicious lesion. Electronically Signed By: Yolanda gomez/macho:12/10/2023 16:00:59 letter sent: No_Letter ACR BI-RADS Category 1: Negative [id number] PARENCHYMAL PATTERN: (D) - The breast(s) demonstrate(s) heterogeneously dense fibroglandular zoe cortes. BI-RADS CATEGORY: (1) - 1 RECOMMENDATION: (ANNUAL) - Recommend routine annual screening mammography. [id number] 1 year screening LATERALITY: (B)
== END 2023-12-10 11:11 | disposition home or self-care (01) ==
LOC: DI 11:10
DX: Z12.31 Encounter for screening mammogram for malignant neoplasm of breast (principal); R92.333 Mammographic heterogeneous density, bilateral breasts

== ENCOUNTER 2024-05-11 08:58 | Outpatient (CLI) | payer OTHER | END 2024-05-11 08:59 | disposition home or self-care (01) | LOC: LAB 08:58 | PROVIDERS: ATTEND Physician Assistant Medical | DX: R53.83 Other fatigue (principal) | CPT/HCPCS: 36415; 85651; 86140 ==